=== PATIENT | female | born 1980 | race Caucasian/White ===

== ENCOUNTER 2017-05-06 19:53 | Emergency (ER) | payer OTHER ==
--- NOTE | 2017-05-06 20:58 | ED Physician Documentation ---
PD HPI LOWER EXT INJURY - Stated complaint Stated Complaint: ANKLE INJURY - Chief complaint Chief Complaint: Ext Problem - History obtained from History obtained from: Patient - History of Present Illness PD HPI LOW EXT INJURY LOCATION: Right, Ankle Type of injury: Twist Timing - onset: Today Timing - details: Abrupt onset, Still present Worsened by: Moving, Palpating Associated symptoms: Swelling. No: Weakness, Numbness, Tingling Similar symptoms before: Has not had sx before Recently seen: Not recently seen Review of Systems Constitutional: denies: Fever, Chills Nose: denies: Rhinorrhea / runny nose, Congestion Throat: denies: Sore throat Respiratory: denies: Cough GI: denies: Vomiting, Diarrhea Neurologic: denies: Focal weakness, Numbness PD PAST MEDICAL HISTORY - Past Medical History Musculoskeletal: None - Present Medications Home Medications: Ambulatory Orders Medication Instructions Recorded Confirmed Cyanocobalamin (Vitamin B-12) 1,000 mcg PO DAILY 05/06/17 05/06/17 [Vitamin B-12] HYDROcod/ACETAM 5/325 [[place] 5/325] 1 tab PO Q6H PRN #15 tablet 05/06/17 Pnv95/Ferrous Fumarate/FA 1 each PO DAILY 05/06/17 05/06/17 [ Formula Tablet] - Allergies Allergies/Adverse Reactions: Allergies Allergy/AdvReac Type Severity Reaction Status Date / Time acetaminophen [From Midrin] Allergy Unknown Verified 05/06/17 20:01 dichloralphenazone Allergy Unknown Verified 05/06/17 20:01 [From Midrin] isometheptene [From Midrin] Allergy Unknown Verified 05/06/17 20:01 PD ED PE NORMAL - Vitals Vital signs reviewed: Yes - General General: Alert and oriented X 3, No acute distress, Well developed/nourished - HEENT HEENT: Atraumatic - Neck Neck: No bony TTP - Derm Derm: Normal color, Warm and dry - Extremities Extremities: No tenderness to palpate, Other (right ankle with tenderness laterally with swelling. mild tender medially. No obvious deformity. ). No: Normal ROM s pain - Neuro Neuro: No motor deficit, No sensory deficit Results - Vitals Vitals: Oxygen O2 Source Room air - Rads (name of study) right ankle Radiology: Prelim report reviewed (distal fibular fracture and also apparent posterior tibial. ) PD MEDICAL DECISION MAKING - ED course Complexity details: reviewed results, considered differential, d/w patient Departure - Departure Disposition: 01 Home, Self Care Clinical Impression: Bimalleolar ankle fracture Qualifiers: Encounter type: initial encounter Fracture type: closed Laterality: right Qualified Code(s): S82.841A - Displaced bimalleolar fracture of right lower leg , initial encounter for closed fracture Condition: Stable Record reviewed to determine appropriate education?: Yes Instructions: ED Fx Ankle Lateral Malleolus, ED Boot Aircast Walker Follow-Up: SHELLY Harrison [Provider Group] Prescriptions: HYDROcod/ACETAM 5/325 [[place] 5/325] 1 tab PO Q6H PRN #15 tablet PRN Reason: Pain Comments: Keep the cast boot on as if it is a cast. Okay to remove it briefly for skin washing and cleansing. Nonweightbearing initially and use of crutches. Follow- up with your primary care in about 1-1-1/2 weeks, call Sunday for an appointment. Ice and elevated often. Ibuprofen or naproxen 2-3 times a day for the next 1-2 weeks. Add Tylenol or hydrocodone if needed for pain. On follow-up at likely 1-1/2-2 weeks, they may allow you to start doing partial weightbearing but it depends on how the x-ray is doing. This will take about 6 weeks for full healing. Forms: Activity restrictions Discharge Date/Time: 05/06/17 21:53
[2017-05-06] MEDS ORDERED: HYDROcod/ACETAM 5/325 MG TABLET PO STA (21:10)
[2017-05-06] MEDS ORDERED: HYDROcod/ACET 5/325 Prepack 6 PO STA (21:10)
--- NOTE | 2017-05-06 21:39 | XRAY Preliminary Report ---
Exam: XR ANKLE 3 VIEW RT IMPRESSION: Bimalleolar ankle fracture, including Velasquez type B oblique distal fibula fracture and mil dly impacted vertical posterior malleolus fracture. [facility] SITE ID: [id number]
--- NOTE | 2017-05-06 21:41 | XRAY Report ---
EXAM: RIGHT ANKLE RADIOGRAPHY EXAM DATE: 05/06/2017 08:35 PM. CLINICAL HISTORY: Pain to right ankle secondary to injury. COMPARISON: None. TECHNIQUE: 3 views. FINDINGS: Bones: Oblique distal fibula fracture, extending to the level of the tibial plafond, with mild impact ion of the distal fracture fragment. Mildly impacted vertical posterior malleolus fracture. Joints: Normal alignment. The ankle mortise is symmetric. No tibiotalar joint effusion. Soft Tissues: Anterolateral soft tissue swelling. IMPRESSION: Bimalleolar ankle fracture, including Velasquez type B oblique distal fibula fracture and mil dly impacted vertical posterior malleolus fracture. [facility] Referring Provider Line: [phone] SITE ID: [id number]
[2017-05-06 21:54] VITALS: BP 118/79
== END 2017-05-06 21:53 | disposition home or self-care (01) ==
LOC: ED 19:53
DX: S82.841A Displaced bimalleolar fracture of right lower leg, initial encounter for closed fracture (principal); W00.0XXA Fall on same level due to ice and snow, initial encounter; X50.9XXA Other and unspecified overexertion or strenuous movements or postures, initial encounter
CPT/HCPCS: 73610; 99283; A9270

== ENCOUNTER 2017-11-27 14:58 | Outpatient (CLI) | payer OTHER ==
[2017-11-27] MEDS ORDERED: GADOBUTROL 10 MMOL/10 ML VIAL IVP ONE (15:39)
[2017-11-27] MEDS ORDERED: GADOBUTROL 10 MMOL/10 ML VIAL ONE (15:48)
--- NOTE | 2017-11-28 13:56 | MRI Report ---
Procedure Date: 11/27/2017 Accession Number: [id number] / [id number] Procedure: MRI - Ankle RT W/WO CPT Code: FULL RESULT: EXAM: RIGHT ANKLE/HINDFOOT MRI WITHOUT AND WITH CONTRAST EXAM DATE: 11/27/2017 04:27 PM. CLINICAL HISTORY: Pain in right ankle and joints of right foot. COMPARISON: ANKLE 3 VIEW RT 05/06/2017. TECHNIQUE: Multiplanar, multisequence T1-weighted and fluid-sensitive sequences of the ankle before and after administration of intravenous contrast. IV contrast: 10 cc gadavist. Other: None. FINDINGS: Bones and articular surfaces: Artifact related to internal fixation of the distal fibula with sideplate and screws. Old healed oblique intra-articular fracture at the posterior aspect of the distal tibia. Mild cartilage thinning and fissuring at the posterior aspect of the tibiotalar joint. No significant joint effusion. Musculotendinous structures: The Achilles tendon and plantar fascia appear intact. Visualized anterior, posterior and posterior lateral ankle tendons appear intact. No significant muscle atrophy or fatty replacement. Ligaments: The anterior talofibular ligament is ill-defined and thinned in appearance. Posterior talofibular and calcaneofibular ligaments appear intact. Visualized portions of the deltoid ligament appear intact. Normal signal within the tarsal sinus. IMPRESSION: 1. Artifact related to internal fixation of the distal fibula. 2. Old healed or healing intra-articular fracture at the posterior aspect of the distal tibia. 3. Mild cartilage thinning and fissuring in the tibiotalar joint posteriorly. [facility] MUSCULOSKELETAL RADIOLOGY SECTION
== END 2017-11-27 14:59 | disposition home or self-care (01) ==
LOC: DI 14:58
PROVIDERS: ATTEND Orthopaedic Surgery
DX: M25.571 Pain in right ankle and joints of right foot (principal)
CPT/HCPCS: 73723; A9585

== ENCOUNTER 2019-03-07 06:05 | Day surgery (SDC) | payer OTHER ==
[2019-03-07] MEDS ORDERED: CEFAZOLIN SODIUM IN 0.9 % NACL 2 GM/100 ML BAG IV ONE (06:27)
[2019-03-07 06:33] LABS: HCG UR QUAL NEGATIVE
[2019-03-07] MEDS ORDERED: LACTATED RINGERS 1,000 ML IV ONE ×2 (06:41→09:04)
--- NOTE | 2019-03-07 07:03 | ANESTHESIA ---
Pre-Anesthesia VS, & Labs - Diagnosis Recurrent right breast abscess - Procedure excision of ectatic duct of right breast Vital Signs: Temp Pulse Resp BP Pulse Ox 37.4 C 60 15 114/52 L 98 03/07/19 06:30 03/07/19 06:30 03/07/19 06:30 03/07/19 06:30 03/07/19 06:30 Height 5 ft 5 in Weight (kg) 91 kg Body Mass Index 35.2 - NPO >8 hours - Is Patient ?: No Home Medications and Allergies Home Medications: Ambulatory Orders Doxepin [SINEquan] 25 mg PO DAILY 03/06/19 Pnv95/Ferrous Fumarate/FA [ Formula Tablet] 1 each PO DAILY 05/06/17 Doxepin [SINEquan] 25 mg PO DAILY 03/06/19 Allergies/Adverse Reactions: Allergies Allergy/AdvReac Type Severity Reaction Status Date / Time dichloralphenazone Allergy dilated Verified 03/04/19 11:57 [From Midrin] pupils isometheptene [From Midrin] Allergy Unknown Verified 05/06/17 20:01 Anes History & Medical History - Anesthetic History Anesthesia Complications: reports: No previous complications - Medical History Cardiovascular: reports: None Pulmonary: reports: None Gastrointestinal: reports: None Urinary: reports: Kidney stones (hx of kidney stones) Neuro: reports: None Musculoskeletal: reports: None Endocrine/Autoimmune: reports: HyPOthyroidism (not currently taking) Blood Disorders: reports: None Skin: reports: None Smoking Status: Former smoker (quit 1 y ear ago) Psychosocial: reports: No issues indicated - Surgical History General: Colonoscopy, Other (breast biopsy) Gynecologic:  Orthopedic: Other (right ankle ORIF) Dermatologic: Skin cancer surgery (basal cell) Exam General: Alert, Oriented x3, Cooperative, No acute distress Dental: WNL Mouth Openin Fingerbreadth Neck Mobility: Normal Mallampati classification: II Thyromental Distance: greater than 6 cm Respiratory: Lungs clear, Normal breath sounds, No respiratory distress, No accessory muscle use Cardiovascular: Regular rate, Normal S1, Normal S2, No murmurs Mental/Cognitive Status: Alert/Oriented X3, Normal for patient Plan Anesthesia Type: General Consent for Procedure(s) Verified and Reviewed: Yes Code Status: Attempt Resuscitation ASA classification: 2-Mild systemic disease Is this case an emergency?: No
[2019-03-07] MEDS: BUPIVACAINE 0.5% PF 30 ML VIAL ONE ×2 (07:36→08:55)
[2019-03-07] MEDS ORDERED: HYDROmorphone 1 MG/ML CARPUJECT IVP ONE (07:56)
[2019-03-07] MEDS ORDERED: ONDANSETRON 4 MG/2 ML VIAL IVP ONE (07:56)
[2019-03-07] MEDS ORDERED: MIDAZOLAM 2 MG/2 ML VIAL IVP ONE (07:56)
[2019-03-07] MEDS ORDERED: KETOROLAC 30 MG/ML VIAL IVP ONE (07:56)
[2019-03-07] MEDS ORDERED: PROPOFOL 200 MG/20 ML VIAL IVP ONE (07:56)
[2019-03-07] MEDS ORDERED: DEXAMETHASONE 4 MG/ML VIAL IVP ONE (07:56)
[2019-03-07] MEDS ORDERED: fentaNYL 100 MCG/2 ML VIAL IVP ONE (07:56)
[2019-03-07] MEDS ORDERED: HYDROcod/ACETAM 5/325 MG TABLET PO PRN (09:02)
[2019-03-07] MEDS ORDERED: ONDANSETRON 4 MG/2 ML VIAL IVP PRN (09:02)
[2019-03-07] MEDS ORDERED: HYDROmorphone 0.5 MG/0.5 ML SYRINGE IVP PRN (09:02)
--- NOTE | 2019-03-07 09:08 | OPERATIVE REPORT ---
Operative Report - General Procedure Date: 03/07/19 Planned Procedure: Right breast excisional biopsy of duct and abscess cavity Pre-Op Diagnosis: Recurrent right breast abscessectatic or obstructed duct Procedure Performed: Right breast excisional biopsy including duct and abscess cavity Post Op Diagnosis: Same - Procedure Note Primary Surgeon: Morgan Asher MD Anesthesia Provider: Skip Hoffmann CRNA Anesthesia Technique: General LMA, Local (30 mL of half percent Marcaine) IV Fluids (mL): 1,000 Estimated Blood Loss (mL): 20 Drain/Tube Type: Other (None.) Complications: None. - Other Other Information/Narrative: OPERATIVE DESCRIPTION/REPORT: After verbal and written informed consent was obtained detailing the risks of infection, bleeding requiring transfusion with its risks, nerve injury, and , and after I met with the patient confirming the surgery and the site of the surgery and after initialing the site of the surgery with a surgical marker, the patient was brought to the operative suite and placed supine on the operating table. Great care was taken to avoid pressure points to prevent pressure necrosis or nerve injury. Monitoring devices were applied along with TEDs and pneumatic compressive stockings (to prevent DVT). The patient received preoperative antibiotics for surgical prophylaxis. Skip Hoffmann CRNA sedated and anesthetized the patient for the entire procedure. The patient was prepped and draped in the usual sterile manner. With the patient draped my initials were clearly visible. A "time in" then confirmed that the patient was identified with 3 identifiers (name, date and medical record number), the history and physical was in the chart, the signed consent confirming the procedure was in the chart, the patient was in the correct position, the aforementioned prophylactic measures were in place or given, we had the correct personnel and equipment to complete the procedure and that anesthesia, surgery and nursing were given an opportunity to express any concerns. With the agreement of everyone in the room, we proceeded with the operation. After adequate local anesthesia was administered using 1/2% marcaine, the skin at the inferolateral right areolar skin border was incised in a curvilinear fashion. Dissection down to the abnormally dilated duct was performed using a combination of Metzenbaum scissors and Bovie electrocautery. Two "stones" were removed from the duct itself. The abnormal tissue was shaved off the back of the skin of the areola. The dissection then proceeded posteriorly and into the breast proper for approximately 4 cm. Every attempt was made to get approximately 1 cm of normal tissue around the lesion. I opted not to carole the specimen as the likelihood of malignancy is ridiculously low. Meticulous hemostasis was obtained using Bovie electrocautery. The subcutaneous tissues were approximated using interrupted 2-0 Vicryl. The skin incision was approximated with 4-0 Monocryl in a subcuticular fashion. The skin was cleaned of its prep and Dermabond was applied. A dressing was then applied. At this point a time out was performed that confirmed that all the counts were correct, the procedure that was performed, the blood loss, the IV fluids administered, and the patients condition. Having tolerated the procedure well, the patient was subsequently taken to recovery room in good and stable condition. Lotame disclaimer: This document was created in part using voice recognition technology. Because of the inherent limitations of the system ([employer] user manual states that the licensee understands that speech recognition is a statistical process and that recognition errors are inherent in the process), occasional same sounding word substitutions and grammatical errors do occur and persist despite proofreading. Please read this document for context.
[2019-03-07] MEDS ORDERED: ACETAMINOPHEN 1,000 MG/100 ML 100 ML IV ONE (09:40)
[2019-03-07] MEDS: fentaNYL 100 MCG/2 ML VIAL ONE ×2 (09:46→09:51)
[2019-03-07] MEDS ORDERED: ONDANSETRON 4 MG/2 ML VIAL ONE (10:50)
[2019-03-07 10:59] VITALS: BP 106/67
== END 2019-03-07 06:06 | disposition home or self-care (01) ==
LOC: SDS 06:05
PROVIDERS: ATTEND Surgery
PROC: 0HBT0ZZ Excision of Right Breast, Open Approach (ICD-10-PCS; principal; 2019-03-07 07:30)
DX: D24.1 Benign neoplasm of right breast (principal); Z87.891 Personal history of nicotine dependence; Z79.899 Other long term (current) drug therapy
CPT/HCPCS: 19120; 81025; J0131; J0690; J1170; J7120

== ENCOUNTER 2019-05-09 17:39 | Emergency (ER) | payer OTHER ==
[2019-05-09] MEDS ORDERED: DEXAMETHASONE 10 MG/ML VIAL PO STA (19:21)
[2019-05-09] MEDS ORDERED: CHERRY SYRUP 10 ML UDC PO ONE (19:21)
--- NOTE | 2019-05-09 19:30 | ED Physician Documentation ---
History of Present Illness - Stated complaint Stated Complaint: SORE THROAT/L EAR PX - Chief complaint Chief Complaint: Heent - History obtained from History obtained from: Patient - History of Present Illness Timing: Yesterday Pain level max: 6 Pain level now: 5 - Additonal information Additional information: 38-year-old female states that she has been sick for the past week with runny nose, congestion and cough. 2 days ago started having significant throat pain. Noticed exudates on her tonsils. Her ear is also hurting. Worse with swallowing, nothing makes it better. No vomiting. No diarrhea. No abdominal pain. She is not , or breast-feeding Review of Systems Constitutional: reports: Fever Throat: reports: Sore throat GI: denies: Vomiting, Diarrhea Skin: denies: Rash Musculoskeletal: denies: Neck pain, Back pain Neurologic: denies: Headache PD PAST MEDICAL HISTORY - Past Medical History Past Medical History: Yes Cardiovascular: None Respiratory: None Neuro: None Endocrine/Autoimmune: HyPOthyroidism GI: None : Kidney stones HEENT: Chronic vision loss Psych: Claustrophobia Musculoskeletal: None Derm: None - Past Surgical History Past Surgical History: Yes General: Colonoscopy, Other Ortho: Other /[employer] LEADER:  HEENT: Other Derm: Skin cancer surgery - Present Medications Home Medications: Ambulatory Orders Medication Instructions Recorded Confirmed Pnv No.95/Ferrous Fum/Folic AC 1 each PO DAILY 05/06/17 03/04/19 [ Formula Tablet] Doxepin [SINEquan] 25 mg PO DAILY 03/06/19 03/06/19 Docusate Sodium 250Mg Capsule 250 mg PO DAILY #10 capsule 03/07/19 [Colace 250Mg Capsule] HYDROcod/ACETAM 5/325 [[place] 5/325] 1 each PO Q4H #10 tablet 03/07/19 Ibuprofen [Motrin] 800 mg PO Q8H PRN #30 tablet 05/09/19 Penicillin V Potassium 500 mg PO Q6HR #40 tablet 05/09/19 - Allergies Allergies/Adverse Reactions: Allergies Allergy/AdvReac Type Severity Reaction Status Date / Time dichloralphenazone Allergy dilated Verified 05/09/19 17:51 [From Midrin] pupils isometheptene [From Midrin] Allergy Unknown Verified 05/09/19 17:51 - Social History Does the pt smoke?: No Smoking Status: Never smoker Does the pt drink ETOH?: No Does the pt have substance abuse?: No - Immunizations Immunizations are current?: Yes - POLST Patient has POLST: No PD ED PE NORMAL - Vitals Vital signs reviewed: Yes - General General: Alert and oriented X 3, No acute distress, Well developed/nourished - HEENT HEENT: PERRL, Ears normal, Moist mucous membranes, Other (Posterior pharyngeal erythema with tonsillar exudates. Uvula midline. Normal phonation. No trismus.) - Neck Neck: Supple, no meningeal sign, Other (Shotty anterior lymphadenopathy) - Cardiac Cardiac: RRR, Strong equal pulses - Respiratory Respiratory: No respiratory distress, Clear bilaterally - Abdomen Abdomen: Soft, Non tender, Non distended - Derm Derm: Warm and dry, No rash - Neuro Neuro: Alert and oriented X 3 - Psych Psych: Normal mood, Normal affect Results - Vitals Vitals: Oxygen O2 Source Room air PD MEDICAL DECISION MAKING - ED course Complexity details: considered differential, d/w patient ED course: Patient appears to have strep pharyngitis clinically. Will place on antibiotics. She is well-appearing, nontoxic. Afebrile. No evidence of abscess. Patient counseled regarding signs and symptoms for which I believe and urgent re-evaluation would be necessary. Patient with good understanding of and agreement to plan and is comfortable going home at this time This document was made in part using voice recognition software. While efforts are made to proofread this document, sound alike and grammatical errors may occur. Departure - Departure Disposition: 01 Home, Self Care Clinical Impression: Strep pharyngitis Condition: Good Instructions: ED Strep Pharyngitis Conf Follow-Up: Your,doctor in 1 week [Other] Prescriptions: Penicillin V Potassium 500 mg PO Q6HR #40 tablet Ibuprofen [Motrin] 800 mg PO Q8H PRN #30 tablet PRN Reason: PAIN &/OR FEVER Comments: Take all antibiotics until gone. Return if you worsen. Follow-up with your doctor for further care. Discharge Date/Time: 05/09/19 19:30
[2019-05-09 19:42] VITALS: BP 135/87
== END 2019-05-09 19:30 | disposition home or self-care (01) ==
LOC: ED 17:39
DX: J02.0 Streptococcal pharyngitis (principal)
CPT/HCPCS: 99282; 99284; A9270

== ENCOUNTER 2020-06-16 07:00 | Outpatient (CLI) | payer OTHER ==
[2020-06-16 16:54] LABS: MUDS CUTOFF CONCENTRATIONS CUTOFF CONC BELOW:
[2020-06-16 17:12] LABS: BILIRUBIN,URINE NEGATIVE (NEGATIVE); GLUCOSE, URINE (UA) NEGATIVE (NEGATIVE); KETONES,URINE (UA) TRACE mg/dL (NEGATIVE); LEUKOCYTE ESTERASE, URINE NEGATIVE (NEGATIVE); NITRITE,URINE NEGATIVE (NEGATIVE); OCCULT BLOOD,URINE NEGATIVE (NEGATIVE); PROTEIN,URINE NEGATIVE (NEGATIVE); UROBILINOGEN,URINE 0.2 (NORMAL) E.U./dL (NORMAL)
[2020-06-16 17:15] LABS: CLARITY,URINE CLEAR (CLEAR)
[2020-06-16 17:22] LABS: AMPHETAMINE SCREEN,URINE NEGATIVE (NEGATIVE); BENZODIAZEPINES SCREEN, URINE NEGATIVE (NEGATIVE); COCAINE SCREEN URINE NEGATIVE (NEGATIVE); METHADONE SCREEN, URINE NEGATIVE (NEGATIVE); METHAMPHETAMINES SCREEN, URINE NEGATIVE (NEGATIVE); OPIATE SCREEN, URINE NEGATIVE (NEGATIVE); OXYCODONE SCREEN, URINE NEGATIVE (NEGATIVE); PROPOXYPHENE SCREEN, URINE NEGATIVE (NEGATIVE); TRICYCLIC ANTIDEPRESSANT,URINE NEGATIVE (NEGATIVE)
== END 2020-06-16 23:59 | disposition home or self-care (01) ==
LOC: LAB.R 07:00
PROVIDERS: ATTEND Nurse Practitioner Obstetrics & Gynecology
DX: Z32.01 Encounter for pregnancy test, result positive (principal)
CPT/HCPCS: 80306; 81001; 81003; 87086

== ENCOUNTER 2020-06-24 12:57 | Outpatient (CLI) | payer OTHER ==
--- NOTE | 2020-06-24 15:34 | Ultrasound Report ---
PROCEDURE: OB First Trimester INDICATIONS: + preg test OUTSIDE/PRIOR DATING DATA: Last menstrual period (LMP): 04/05/2020. LMP-based estimated date of delivery (EKTA): 01/10/2021. First dating scan (date and location): 06/24/2020. Estimated date of delivery (EKTA) from first dating scan: 01/05/2021. TECHNIQUE: Real-time scanning was performed of the fetus and maternal pelvic organs, with image documentation. COMPARISON: FINDINGS: Embryo: There is a gestational sac at the uterine fundus with mean sac diameter of 5.3 cm, correspon ding to gestational age of 11 weeks 1 day. Within the gestational sac there is a fetus with a crown-r ump length of 5.5 cm, corresponding to gestational age of 12 weeks 1 day. heart rate detected a t 163 bpm. The cervix appears closed and normal. Both ovaries are unremarkable. IMPRESSION: Single live intrauterine gestation with average ultrasound age of 12 weeks 1 day. Reviewed by: Kraig Abraham MD on 06/24/2020 2:32 PM [facility] Approved by: Kraig Abraham MD on 06/24/2020 2:32 PM [facility] Station ID: [id number]
== END 2020-06-24 12:58 | disposition home or self-care (01) ==
LOC: DI 12:57
PROVIDERS: ATTEND Nurse Practitioner Obstetrics & Gynecology
DX: Z32.01 Encounter for pregnancy test, result positive (principal); O99.280 Endocrine, nutritional and metabolic diseases complicating pregnancy, unspecified trimester; E03.9 Hypothyroidism, unspecified; Z3A.12 12 weeks gestation of pregnancy
CPT/HCPCS: 36415; 81599; 84439; 84443; 85025; 86592; 86762; 86787; 86803; 86850; 86900; 86901; 87340; 87389

== ENCOUNTER 2020-06-24 13:42 | Outpatient (CLI) | payer OTHER ==
[2020-06-24 14:16] LABS: BASOPHILS % (AUTO) 0.3 %; EOSINOPHILS # (AUTO) 0.1 10^3/uL (0.0-0.7); EOSINOPHILS % (AUTO) 1.1 %; HGB - HEMOGLOBIN 13.9 g/dL (12.0-16.0); LYMPHOCYTES # (AUTO) 2.8 10^3/uL (1.5-3.5); LYMPHOCYTES % (AUTO) 21.3 %; MEAN CORPUSCULAR HEMOGLOBIN 30.4 pg (27.0-31.0); MEAN CORPUSCULAR HGB CONC 33.6 g/dL (32.0-36.0); MEAN CORPUSCULAR VOLUME 90.6 fL (81.0-99.0); MEAN PLATELET VOLUME 11.1 fL (7.9-10.8); MONOCYTES # (AUTO) 0.7 10^3/uL (0.0-1.0); MONOCYTES % (AUTO) 5.4 %; NEUTROPHILS # (AUTO) 9.4 10^3/uL (1.5-6.6); NEUTROPHILS % (AUTO) 71.6 %; PLT - PLATELET COUNT 245 10^3/uL (130-450); RED BLOOD COUNT 4.57 10^6/uL (4.20-5.40); RED CELL DISTRIBUTION WIDTH 12.8 % (12.0-15.0); WHITE BLOOD COUNT 13.1 x10^3/uL (4.8-10.8)
[2020-06-24 14:44] LABS: THYROID STIMULATING HORMONE 1.95 uIU/mL (0.34-5.60)
[2020-06-24 14:47] LABS: FREE T4 (FREE THYROXINE) 0.79 ng/dL (0.58-1.64)
[2020-06-25 13:42] LABS: HEPATITIS B SURFACE ANTIGEN NON-REACTIVE (NON-REACTIVE); HEPATITIS C ANTIBODY NON-REACTIVE (NON-REACTIVE)
[2020-06-25 14:57] LABS: HIV AG/AB 4TH GEN NON-REACTIVE (NON-REACTIVE)
== END 2020-06-24 13:43 | disposition home or self-care (01) ==
LOC: LAB 13:42
PROVIDERS: ATTEND Nurse Practitioner Obstetrics & Gynecology
DX: Z32.01 Encounter for pregnancy test, result positive (principal); O99.280 Endocrine, nutritional and metabolic diseases complicating pregnancy, unspecified trimester; E03.9 Hypothyroidism, unspecified
CPT/HCPCS: 36415; 81599; 84439; 84443; 85025; 86762; 86787; 86803; 86850; 86900; 86901; 87340; 87389

== ENCOUNTER 2020-06-29 08:00 | Outpatient (CLI) | payer OTHER ==
[2020-06-29 22:43] LABS: TRICHOMONAS VAGINALIS DNA NEGATIVE (NEGATIVE)
== END 2020-06-29 23:59 | disposition home or self-care (01) ==
LOC: LAB.R 08:00
PROVIDERS: ATTEND Nurse Practitioner Obstetrics & Gynecology
DX: Z11.3 Encounter for screening for infections with a predominantly sexual mode of transmission (principal)
CPT/HCPCS: 87491; 87591; 87661

== ENCOUNTER 2020-07-30 11:19 | Outpatient (CLI) | payer OTHER | END 2020-07-30 11:20 | disposition home or self-care (01) | LOC: LAB 11:19 | PROVIDERS: ATTEND Nurse Practitioner Obstetrics & Gynecology | DX: O09.511 Supervision of elderly primigravida, first trimester (principal) | CPT/HCPCS: 36415 ==

== ENCOUNTER 2020-10-21 11:54 | Outpatient (CLI) | payer OTHER ==
[2020-10-21 13:03] LABS: HCT - HEMATOCRIT 31.5 % (37.0-47.0); HGB - HEMOGLOBIN 10.4 g/dL (12.0-16.0); MEAN CORPUSCULAR HEMOGLOBIN 31.3 pg (27.0-31.0); MEAN CORPUSCULAR VOLUME 94.9 fL (81.0-99.0); MEAN PLATELET VOLUME 10.7 fL (7.9-10.8); RED BLOOD COUNT 3.32 10^6/uL (4.20-5.40); RED CELL DISTRIBUTION WIDTH 13.5 % (12.0-15.0); WHITE BLOOD COUNT 9.9 x10^3/uL (4.8-10.8)
[2020-10-21 13:40] LABS: THYROID STIMULATING HORMONE 2.27 uIU/mL (0.34-5.60)
[2020-10-21 13:42] LABS: FREE T4 (FREE THYROXINE) 0.6 ng/dL (0.58-1.64)
== END 2020-10-21 11:55 | disposition home or self-care (01) ==
LOC: LAB 11:54
PROVIDERS: ATTEND Obstetrics & Gynecology
DX: O09.899 Supervision of other high risk pregnancies, unspecified trimester (principal); E03.9 Hypothyroidism, unspecified
CPT/HCPCS: 36415; 82950; 84439; 84443; 85027

== ENCOUNTER 2020-10-22 08:04 | Outpatient (CLI) | payer OTHER ==
[2020-10-22 08:33] LABS: GTT GLUCOSE,FASTING 97 mg/dL (70-100)
== END 2020-10-22 08:05 | disposition home or self-care (01) ==
LOC: LAB 08:04
PROVIDERS: ATTEND Obstetrics & Gynecology
DX: O09.899 Supervision of other high risk pregnancies, unspecified trimester (principal)
CPT/HCPCS: 36415; 82951; 82952

== ENCOUNTER 2020-11-16 18:56 | Outpatient (CLI) | payer OTHER ==
--- NOTE | 2020-11-17 12:08 | Ultrasound Report ---
PROCEDURE: OB F/U or Repeat INDICATIONS: GESTATIONAL DIABETES, SUPERVISION OF HIGH RISK PRE OUTSIDE/PRIOR DATING DATA: Last menstrual period (LMP): 04/05/2020. LMP-based estimated date of delivery (EKTA): 01/10/2021. First dating scan (date and location): 06/24/2020, [facility]. Estimated date of delivery (EKTA) from first dating scan: 01/05/2021. The below data below was generated using the LMP EKTA of 01/10/2021 TECHNIQUE: Real-time scanning was performed of the fetus, with image documentation and biometric measurements. COMPARISON: None. FINDINGS: General: A single living intrauterine gestation is present. Presentation: Vertex Placenta: Placental position is anterior, without previa. Amniotic fluid index: 15.8 cm. Largest pocket 3.3 cm heart rate: 135 beats per minute. Maternal cervical canal: Not identified biometrics: Biparietal diameter: 7.8 cm: 31 weeks 1 day Head circumference: 29.6 cm: 32 weeks 5 days Abdominal circumference: 28.4 cm: 32 weeks 2 days Femur length: 6.3 cm: 32 weeks 5 days Estimated gestational age from initial scan: 32 weeks 1 day. Composite gestational age from present scan: 32 weeks 2 days Estimated weight and percentile: 1978 g. 49.3% Measurement variability in biometric dating: +/- 10 days from 12-20 weeks gestation, +/- 2 weeks from 20-30 weeks gestation, +/- 3 weeks at 30 weeks gestation or more. Other: Limited anatomy demonstrates a normal-appearing chest/diaphragm, stomach/abdomen, bilateral re nal regions, and urinary bladder/pelvis.. IMPRESSION: 1. Intrauterine with an estimated date of delivery of 01/11/2020 by LMP. 2. Estimated weight 1978 g, 49.3% 3. Normal CORTEZ. Reviewed by: Gerry Lam on 11/17/2020 12:06 PM PDT Approved by: Gerry Lam on 11/17/2020 12:06 PM PDT Station ID: [id number]
== END 2020-11-16 18:57 | disposition home or self-care (01) ==
LOC: DI 18:56
PROVIDERS: ATTEND Obstetrics & Gynecology
DX: O24.419 Gestational diabetes mellitus in pregnancy, unspecified control (principal); O09.899 Supervision of other high risk pregnancies, unspecified trimester; Z3A.32 32 weeks gestation of pregnancy

== ENCOUNTER 2020-11-23 13:41 | Outpatient (CLI) | payer OTHER | END 2020-11-23 13:42 | disposition home or self-care (01) | LOC: NS 13:41 | PROVIDERS: ATTEND Obstetrics & Gynecology | DX: Z53.9 Procedure and treatment not carried out, unspecified reason (principal) ==

== ENCOUNTER 2020-11-29 16:36 | Outpatient (CLI) | payer OTHER ==
--- NOTE | 2020-11-30 10:37 | Ultrasound Report ---
PROCEDURE: OB Limited INDICATIONS: GESTATIONAL DIABETES OUTSIDE/PRIOR DATING DATA: Last menstrual period (LMP): 04/05/2020. LMP-based estimated date of delivery (EKTA): 01/11/2020. First dating scan (date and location): 06/24/2019. Estimated date of delivery (EKTA) from first dating scan: 01/06/2020. The below data below was generated using the clinical EKTA of 01/11/2020 TECHNIQUE: Real-time scanning was performed of the fetus, with image documentation. COMPARISON: OB ultrasound 06/24/2020, 11/16/2020 FINDINGS: A single living intrauterine gestation is present. Presentation: First Placenta: Placental position is anterior, without previa. Amniotic fluid index: 14.4 cm, within normal limits for gestational age. Largest pocket 5.1 cm heart rate: 145 beats per minutes. Maternal cervical canal: 3 cm long; normal length is 2.5 cm or more. Estimated gestational age from initial scan: 34 weeks 0 days. IMPRESSION: 1. Single live intrauterine . 2. CORTEZ 14.4 cm with largest pocket measuring 5.1 cm. This corresponds to 15.8 cm and 3.3 cm respectiv jaqueline on 11/16/2020. Reviewed by: Mirna Yancey MD on 11/30/2020 10:36 AM PDT Approved by: Mirna Yancey MD on 11/30/2020 10:36 AM PDT Station ID: [id number]
== END 2020-11-29 16:37 | disposition home or self-care (01) ==
LOC: DI 16:36
PROVIDERS: ATTEND Obstetrics & Gynecology
DX: O24.419 Gestational diabetes mellitus in pregnancy, unspecified control (principal); Z3A.34 34 weeks gestation of pregnancy

== ENCOUNTER 2020-12-01 08:00 | Outpatient (CLI) | payer OTHER ==
[2020-12-01 16:28] LABS: BILIRUBIN,URINE NEGATIVE (NEGATIVE); GLUCOSE, URINE (UA) NEGATIVE (NEGATIVE); KETONES,URINE (UA) NEGATIVE (NEGATIVE); LEUKOCYTE ESTERASE, URINE NEGATIVE (NEGATIVE); NITRITE,URINE NEGATIVE (NEGATIVE); OCCULT BLOOD,URINE NEGATIVE (NEGATIVE); PROTEIN,URINE NEGATIVE (NEGATIVE); UROBILINOGEN,URINE 0.2 (NORMAL) E.U./dL (NORMAL)
[2020-12-01 16:30] LABS: CLARITY,URINE CLEAR (CLEAR)
[2020-12-01 16:40] LABS: BACTERIA,URINE Few /HPF (None Seen); RBC,URINE 0-5 /HPF (0-5); SQUAMOUS EPITHELIAL CELL,UR FEW Squamous (<= Few); WBC,URINE 0-3 /HPF (0-5)
[2020-12-01 20:12] LABS: BACTERIAL VAGINOSIS DNA NEGATIVE (NEGATIVE); CANDIDA KRUSEI DNA NEGATIVE (NEGATIVE)
[2020-12-01 20:13] LABS: CANDIDA GLABRATA DNA NEGATIVE (NEGATIVE); CANDIDA GROUP DNA NEGATIVE (NEGATIVE); TRICHOMONAS VAGINALIS DNA NEGATIVE (NEGATIVE)
== END 2020-12-01 23:59 | disposition home or self-care (01) ==
LOC: LAB.WC 08:00
PROVIDERS: ATTEND Obstetrics & Gynecology
DX: R82.90 Unspecified abnormal findings in urine (principal); N76.0 Acute vaginitis
CPT/HCPCS: 81001; 87086; 87661; 87801

== ENCOUNTER 2020-12-02 16:30 | Outpatient (CLI) | payer OTHER ==
[2020-12-02 16:46] VITALS: BP 105/44
--- NOTE | 2020-12-02 18:37 | PROCEDURE REPORT ---
- HPI Current EDU 01/10/21 Gestation 34 Weeks and 3 Days 1 Para 0 Vital Signs Temperature 98.8 F 12/02/20 16:44 Heart Rate 76 12/02/20 16:44 Respiratory Rate 17 12/02/20 16:44 Blood Pressure 105/44 L 12/02/20 16:44 O2 Saturation 99 12/02/20 16:44 Temperature 98.8 F 12/02/20 16:44 Heart Rate 76 12/02/20 16:44 Respiratory Rate 17 12/02/20 16:44 Blood Pressure 105/44 L 12/02/20 16:44 O2 Saturation 99 12/02/20 16:44 - NST Procedure NST Procedure Start Date 12/02/20 Start Time 16:40 Vibroacoustic Stimulation Used No Patient States Movement Yes 40 yo GDM A2 on Metformin here for NST. Initially, had an indeterminate baseline. It would go from 140- 180's, definitely moderate variability criteria was met, but unsure if having accelerations or decelerations. Patient's glucose checked and it was 87. Biophysical profile ordered to assess the fetus. NST became more appropriate in appearance with Baseline of 125, moderate variability and Accelerations present. No decelerations. No contractions. Biophysical profile was 6/8, NST was Reactive and Category I. Repeat NST and Biophysical Profile tomorrow. - Results and Plan Findings/Impression: IUP 34 3/7 GDM A2 Continue current medication and monitoring protocols. Follow-up in office as scheduled.
--- NOTE | 2020-12-02 21:50 | Ultrasound Report ---
PROCEDURE: OB Biophysical Profile INDICATIONS: GDM OUTSIDE/PRIOR DATING DATA: Last menstrual period (LMP): 04/05/2020. LMP-based estimated date of delivery (EKTA): 01/10/2021. First dating scan (date and location): To 1121. Estimated date of delivery (EKTA) from first dating scan: 01/05/2021. The below data below was generated using the clinical EKTA of 01/10/2021 TECHNIQUE: Real-time scanning was performed of the fetus, with image documentation and biometric joleen surements. Biophysical profile was also obtained. COMPARISON: OB ultrasound 11/29/2020, 11/16/2020, 06/24/2020 FINDINGS: General: A single living intrauterine gestation is present. Presentation: Vertex Placenta: Placental position is anterior, without previa. Amniotic fluid index: 18.1 cm. Largest pocket 5.6 cm heart rate: 136 beats per minute. Maternal cervical canal: Not evaluated biometrics: Estimated gestational age from initial scan: 34 weeks 3 days Biophysical profile: Tone: 2 points. Movement: 2 points. Respiration: 0 points. Largest pocket of fluid: 2 points. Umbilical artery Doppler: 2.2, 2.7, 3.1 IMPRESSION: Single live intrauterine . BPP 8 out of 8 Reviewed by: Mirna Yancey MD on 12/02/2020 9:48 PM PDT Approved by: Mirna Yancey MD on 12/02/2020 9:48 PM PDT Station ID: [id number]
== END 2020-12-02 19:11 | disposition home or self-care (01) ==
LOC: WFO 16:30 → FBP 16:35 → WFO 19:11
PROVIDERS: ATTEND Obstetrics & Gynecology
DX: O24.415 Gestational diabetes mellitus in pregnancy, controlled by oral hypoglycemic drugs (principal); Z3A.34 34 weeks gestation of pregnancy
CPT/HCPCS: 59025

== ENCOUNTER 2020-12-03 10:57 | Outpatient (CLI) | payer OTHER ==
[2020-12-03 11:22] VITALS: BP 135/72
--- NOTE | 2020-12-03 14:05 | PROCEDURE REPORT ---
- HPI Diagnosis/Indication for NST: Other (BPP on 12/02/20 6/8 due to absent breathing motion.) Current EDU 01/10/21 Gestation 34 Weeks and 4 Days 1 Para 0 Vital Signs Temperature 98.4 F 12/03/20 11:20 Heart Rate 89 12/03/20 11:20 Respiratory Rate 18 12/03/20 11:20 Blood Pressure 135/72 H 12/03/20 11:20 O2 Saturation 100 12/03/20 11:20 Temperature 98.4 F 12/03/20 11:20 Heart Rate 89 12/03/20 11:20 Respiratory Rate 18 12/03/20 11:20 Blood Pressure 135/72 H 12/03/20 11:20 O2 Saturation 100 12/03/20 11:20 - NST Procedure NST Procedure Start Date 12/03/20 Start Time 11:06 Stop Time 18:18 Vibroacoustic Stimulation Used No Patient States Movement Yes 40 yo at 34 4/7 with GDM A2 presents for NST and BPP due to DPP yesterday of 10/19 with absent breathing. NST: Baseline 135 with moderate variability. Accelerations of 15X15. No decelerations. No contractions. NST is Reactive and Category I BPP today is 12/19 - Results and Plan Findings/Impression: Reactive NST and BPP 12/19 for total of 02/20. Return Sunday as scheduled for her monitoring. Call for any problems.
--- NOTE | 2020-12-03 14:05 | Ultrasound Report ---
PROCEDURE: OB Biophysical Profile INDICATIONS: non-reactive NST 12/02/20 OUTSIDE/PRIOR DATING DATA: Last menstrual period (LMP): 04/05/2020. LMP-based estimated date of delivery (EKTA): 01/10/2021. First dating scan (date and location): To 1121. Estimated date of delivery (EKTA) from first dating scan: 01/05/2021. The below data below was generated using the clinical EKTA of 01/10/2021 TECHNIQUE: Real-time scanning was performed of the fetus, with image documentation and biometric joleen surements. Biophysical profile was also obtained. COMPARISON: OB ultrasound 12/01/2020, 11/29/2020 FINDINGS: General: A single living intrauterine gestation is present. Presentation: Vertex Placenta: Placental position is and, without previa. Amniotic fluid index: 17.1 cm cm, largest pocket 6.1 cm heart rate: 131 beats per minute. Maternal cervical canal: Not well seen biometrics: Estimated gestational age from initial scan: 34 weeks 4 days Biophysical profile: Tone: 2 points. Movement: 2 points. Respiration: 2 points. Largest pocket of fluid: 2 points. Umbilical artery Doppler: 2.5, 2.1, 2.9 IMPRESSION: Single intrauterine . BPP 8 out of 8 Reviewed by: Mirna Yancey MD on 12/03/2020 2:04 PM PDT Approved by: Mirna Yancey MD on 12/03/2020 2:04 PM PDT Station ID: [id number]
== END 2020-12-03 12:45 | disposition home or self-care (01) ==
LOC: WFO 10:57 → FBP 10:59 → WFO 12:45
PROVIDERS: ATTEND Obstetrics & Gynecology
DX: O24.419 Gestational diabetes mellitus in pregnancy, unspecified control (principal); Z3A.34 34 weeks gestation of pregnancy
CPT/HCPCS: 59025

== ENCOUNTER 2020-12-06 16:25 | Outpatient (CLI) | payer OTHER ==
--- NOTE | 2020-12-07 09:06 | Ultrasound Report ---
PROCEDURE: OB Limited INDICATIONS: GESTATIONAL DIABETES OUTSIDE/PRIOR DATING DATA: Last menstrual period (LMP): 04/05/2020. LMP-based estimated date of delivery (EKTA): 01/10/2021. First dating scan (date and location): 06/24/2019. Estimated date of delivery (EKTA) from first dating scan: 01/06/2020. The below data below was generated using the provided EKTA of 01/10/2021 TECHNIQUE: Real-time scanning was performed of the fetus, with image documentation. Endovaginal scanning: Not performed COMPARISON: 12/03/2020, 12/02/2020, 11/29/2020, 11/16/2020, 06/24/2011 FINDINGS: A single living intrauterine gestation is present. Presentation: Vertex Placenta: Placental position is anterior, without previa. Amniotic fluid index: 15.9 cm, normal for gestational age. Largest pocket is 4.4 cm. heart rate: 136 beats per minutes. Maternal cervix: Cervix not visualized. Estimated gestational age from initial scan: 35 weeks 0 days. IMPRESSION: Single living intrauterine gestation with CORTEZ of 15.9 cm and largest pocket 4.4 cm. Reviewed by: Kraig Abraham MD on 12/07/2020 9:05 AM PDT Approved by: Kraig Abraham MD on 12/07/2020 9:05 AM PDT Station ID: [id number]
== END 2020-12-06 16:26 | disposition home or self-care (01) ==
LOC: DI 16:25
PROVIDERS: ATTEND Obstetrics & Gynecology
DX: O24.419 Gestational diabetes mellitus in pregnancy, unspecified control (principal)

== ENCOUNTER 2020-12-06 16:47 | Outpatient (CLI) | payer OTHER ==
[2020-12-06 17:22] VITALS: BP 126/71
--- NOTE | 2020-12-07 17:31 | PROCEDURE REPORT ---
- HPI Diagnosis/Indication for NST: Gestational Diabetes Current EDU 01/10/21 Gestation 35 Weeks and 0 Days 1 Para 0 Vital Signs Temperature 99.3 F 12/06/20 17:00 Heart Rate 84 12/06/20 17:00 Respiratory Rate 18 12/06/20 17:00 Blood Pressure 126/71 12/06/20 17:00 O2 Saturation 98 12/06/20 17:00 Temperature 99.3 F 12/06/20 17:00 Heart Rate 84 12/06/20 17:00 Respiratory Rate 18 12/06/20 17:00 Blood Pressure 126/71 12/06/20 17:00 O2 Saturation 98 12/06/20 17:00 - NST Procedure NST Procedure Start Date 12/06/20 Start Time 17:05 Stop Time 18:18 Vibroacoustic Stimulation Used Yes Patient States Movement No 40 yo at 35 0/7 with Gestational Diabetes for NST. NST: 130's with Moderate Variability and Accelerations 15X15 and no decelerations. No contractions. Category I and Reactive monitor. P-Keep all appointments.
== END 2020-12-06 18:00 | disposition home or self-care (01) ==
LOC: FBP 16:47 → WFO 16:47
PROVIDERS: ATTEND Obstetrics & Gynecology
DX: O24.419 Gestational diabetes mellitus in pregnancy, unspecified control (principal); Z3A.35 35 weeks gestation of pregnancy
CPT/HCPCS: 59025

== ENCOUNTER 2020-12-09 13:59 | Outpatient (CLI) | payer OTHER ==
[2020-12-09 14:12] VITALS: BP 129/63
--- NOTE | 2020-12-09 18:07 | PROCEDURE REPORT ---
- HPI Current EDU 12/10/20 Gestation 39 Weeks and 6 Days 1 Para 0 Vital Signs Temperature 98.3 F 12/09/20 14:08 Heart Rate 83 12/09/20 14:08 Blood Pressure 129/63 12/09/20 14:08 O2 Saturation 97 12/09/20 14:08 Temperature 98.3 F 12/09/20 14:08 Heart Rate 83 12/09/20 14:08 Respiratory Rate Blood Pressure 129/63 12/09/20 14:08 O2 Saturation 97 12/09/20 14:08 - NST Procedure NST Procedure Start Date 12/09/20 Start Time 14:05 Stop Time 14:25 Vibroacoustic Stimulation Used No Patient States Movement Yes 40 yo with GDM here for NST. Patient is 39 6/7 today. NST: Baseline is 130's with moderate variability. Patient has accelerations that are 15X15. No decelerations. NST is Reactive and Category I. A-IUP 39 6/7 with GDM P- Continue monitoring and appointment.
== END 2020-12-09 14:25 | disposition home or self-care (01) ==
LOC: WFO 13:59 → FBP 14:01 → WFO 14:25
PROVIDERS: ATTEND Obstetrics & Gynecology
DX: O24.419 Gestational diabetes mellitus in pregnancy, unspecified control (principal); Z3A.39 39 weeks gestation of pregnancy
CPT/HCPCS: 59025

== ENCOUNTER 2020-12-13 16:35 | Outpatient (CLI) | payer OTHER ==
--- NOTE | 2020-12-13 19:59 | PROCEDURE REPORT ---
- NST Procedure NST Procedure Start Time 17:03 Stop Time 17:28 EFM 135 mod radha 15x15 accels no decels TOCO: one ctx n 25 min - Results and Plan Findings/Impression: 40 yo at 36+0 wga with affected by A2 gestational diabetes Cat I tracing Cont with twice weekly NSt and weekly CORTEZ Q4 week growth us IOL at 39 weeks DX: IUP at 36+0 wga Gestational diabetes DOS: 12/13/20 NST read 12/13/20
== END 2020-12-13 16:36 | disposition home or self-care (01) ==
LOC: WFO 16:35
PROVIDERS: ATTEND Obstetrics & Gynecology
DX: O24.415 Gestational diabetes mellitus in pregnancy, controlled by oral hypoglycemic drugs (principal); Z3A.36 36 weeks gestation of pregnancy
CPT/HCPCS: 59025

== ENCOUNTER 2020-12-13 16:37 | Outpatient (CLI) | payer OTHER ==
[2020-12-13 17:12] VITALS: BP 126/64
--- NOTE | 2020-12-14 09:39 | Ultrasound Report ---
PROCEDURE: OB Limited INDICATIONS: GESTATIONAL DIABETES OUTSIDE/PRIOR DATING DATA: Last menstrual period (LMP): 04/05/2020. LMP-based estimated date of delivery (EKTA): 01/10/2021. First dating scan (date and location): 06/24/2020. Estimated date of delivery (EKTA) from first dating scan: 01/05/2021. The below data below was generated using the clinician provided EKTA of 01/10/2021 TECHNIQUE: Real-time scanning was performed of the fetus, with image documentation. Endovaginal scanning: Not performed COMPARISON: 06/24/2020, 11/16/2020, 11/29/2020 FINDINGS: A single living intrauterine gestation is present. Presentation: Vertex Placenta: Placental position is anterior, without previa. Amniotic fluid index: 17.4 cm. heart rate: 132 beats per minutes. IMPRESSION: Single live intrauterine gestation. CORTEZ is 17.4 cm. Reviewed by: Kraig Abraham MD on 12/14/2020 9:37 AM PDT Approved by: Kraig Abraham MD on 12/14/2020 9:37 AM PDT Station ID: [id number]
== END 2020-12-13 17:52 | disposition home or self-care (01) ==
LOC: DI 16:37 → FBP 16:44 → DI 17:52
PROVIDERS: ATTEND Obstetrics & Gynecology
DX: O24.419 Gestational diabetes mellitus in pregnancy, unspecified control (principal); Z3A.00 Weeks of gestation of pregnancy not specified
CPT/HCPCS: 59025

== ENCOUNTER 2020-12-15 08:00 | Outpatient (CLI) | payer OTHER | END 2020-12-15 23:59 | disposition home or self-care (01) | LOC: LAB.WC 08:00 | PROVIDERS: ATTEND Obstetrics & Gynecology | DX: O09.899 Supervision of other high risk pregnancies, unspecified trimester (principal) | CPT/HCPCS: 87797 ==

== ENCOUNTER 2020-12-16 13:58 | Outpatient (CLI) | payer OTHER ==
[2020-12-16 14:13] VITALS: BP 110/59
--- NOTE | 2020-12-16 16:00 | PROCEDURE REPORT ---
- HPI Diagnosis/Indication for NST: Gestational Diabetes Current EDU 01/10/21 Gestation 36 Weeks and 3 Days 1 Para 0 Vital Signs Temperature 36.8 C 12/16/20 14:11 Heart Rate 80 12/16/20 14:11 Respiratory Rate 16 12/16/20 14:11 Blood Pressure 110/59 L 12/16/20 14:11 O2 Saturation 99 12/16/20 14:11 Temperature 36.8 C 12/16/20 14:11 Heart Rate 80 12/16/20 14:11 Respiratory Rate 16 12/16/20 14:11 Blood Pressure 110/59 L 12/16/20 14:11 O2 Saturation 99 12/16/20 14:11 - NST Procedure NST Procedure Start Date 12/16/20 Start Time 14:09 Stop Time 14:30 Vibroacoustic Stimulation Used No Patient States Movement Yes - Results and Plan Findings/Impression: Baseline 135 accelerations present Reactive NST Plan: continue testing
== END 2020-12-16 14:55 | disposition home or self-care (01) ==
LOC: WFO 13:58 → FBP 14:00 → WFO 14:55
PROVIDERS: ATTEND Obstetrics & Gynecology
DX: O24.419 Gestational diabetes mellitus in pregnancy, unspecified control (principal); Z3A.36 36 weeks gestation of pregnancy
CPT/HCPCS: 59025

== ENCOUNTER 2020-12-20 07:00 | Outpatient (CLI) | payer OTHER ==
--- NOTE | 2020-12-21 11:57 | Ultrasound Report ---
PROCEDURE: OB F/U or Repeat INDICATIONS: GDM - GROWTH. OUTSIDE/PRIOR DATING DATA: Last menstrual period (LMP): 04/05/2020. LMP-based estimated date of delivery (EKTA): 01/10/2021. First dating scan (date and location): 06/24/2020. Estimated date of delivery (EKTA) from first dating scan: 01/05/2021. The below data below was generated using the clinician provided EKTA of 01/10/2021 TECHNIQUE: Real-time scanning was performed of the fetus, with image documentation and biometric measurements. COMPARISON: 12/13/2020, 12/06/2020, 12/03/2020, 11/29/2020. FINDINGS: General: A single living intrauterine gestation is present. Presentation: Vertex Placenta: Placental position is anterior, without previa. Amniotic fluid index: 15.8 cm, within normal limits for gestational age. Largest fluid pocket measur ed 5.1 cm. heart rate: 131 beats per minute. Maternal cervical canal: Not imaged. biometrics: Biparietal diameter: 8.6 cm, 34 weeks 3 days Head circumference: 31.9 cm, 35 weeks 6 days Abdominal circumference: 32.5 cm, 36 weeks 3 days Femur length: 7.2 cm, 36 weeks 3 days Estimated gestational age from initial scan: 37 weeks 0 days Composite gestational age from present scan: 35 weeks 6 days Estimated weight and percentile: 2889 g, 36th percentile Measurement variability in biometric dating: +/- 10 days from 12-20 weeks gestation, +/- 2 weeks from 20-30 weeks gestation, +/- 3 weeks at 30 weeks gestation or more. IMPRESSION: 1. Single living intrauterine in vertex position redemonstrated with estimated weight at the 36th percentile. 2. CORTEZ within normal limits measuring 15.8 cm. Reviewed by: Heriberto Styles MD on 12/21/2020 11:55 AM PDT Approved by: Heriberto Styles MD on 12/21/2020 11:55 AM PDT Station ID: [id number]
== END 2020-12-20 23:59 | disposition home or self-care (01) ==
LOC: DI 07:00
PROVIDERS: ATTEND Obstetrics & Gynecology
DX: O24.419 Gestational diabetes mellitus in pregnancy, unspecified control (principal)

== ENCOUNTER 2020-12-20 16:30 | Outpatient (CLI) | payer OTHER ==
[2020-12-20 17:22] VITALS: BP 114/51
--- NOTE | 2020-12-22 20:04 | PROCEDURE REPORT ---
- HPI Diagnosis/Indication for NST: Gestational Diabetes Current EDU 01/10/21 Gestation 37 Weeks and 0 Days 1 Para 0 Vital Signs Temperature 36.8 C 12/20/20 16:45 Heart Rate 76 12/20/20 16:45 Respiratory Rate 16 12/20/20 16:45 Blood Pressure 114/51 L 12/20/20 16:45 O2 Saturation 98 12/20/20 16:45 Temperature 36.8 C 12/20/20 16:45 Heart Rate 76 12/20/20 16:45 Respiratory Rate 16 12/20/20 16:45 Blood Pressure 114/51 L 12/20/20 16:45 O2 Saturation 98 12/20/20 16:45 - NST Procedure NST Procedure Start Date 12/20/20 Start Time 16:44 Stop Time 17:50 Vibroacoustic Stimulation Used No Patient States Movement Yes - Results and Plan Findings/Impression: Baseline 125 accelerations noted good variability. Occasional irregular contractionsGraft Plan: Continue NSTs until delivery. Date of service 2020
== END 2020-12-20 17:10 | disposition home or self-care (01) ==
LOC: DI 16:30 → FBP 16:30 → DI 17:10
PROVIDERS: ATTEND Obstetrics & Gynecology
DX: O24.419 Gestational diabetes mellitus in pregnancy, unspecified control (principal); Z3A.37 37 weeks gestation of pregnancy
CPT/HCPCS: 59025

== ENCOUNTER 2020-12-23 13:56 | Outpatient (CLI) | payer OTHER ==
[2020-12-23 14:07] VITALS: BP 129/61
--- NOTE | 2021-01-01 03:50 | PROCEDURE REPORT ---
- HPI Diagnosis/Indication for NST: Gestational Diabetes Current EDU 01/10/21 Gestation 37 Weeks and 3 Days 1 Para 0 Vital Signs Temperature 98.2 F 12/23/20 14:04 Heart Rate 83 12/23/20 14:04 Respiratory Rate 18 12/23/20 14:04 Blood Pressure 129/61 12/23/20 14:04 O2 Saturation 100 12/23/20 14:04 Temperature 98.2 F 12/23/20 14:04 Heart Rate 83 12/23/20 14:04 Respiratory Rate 18 12/23/20 14:04 Blood Pressure 129/61 12/23/20 14:04 O2 Saturation 100 12/23/20 14:04 - NST Procedure NST Procedure Start Date 12/23/20 Start Time 14:00 Stop Time 14:30 Vibroacoustic Stimulation Used No Patient States Movement Yes EFM 135 mod/marked radha 15x15 accels no decels TOCO: irritable - Results and Plan Findings/Impression: 40 yo at 37+3 wga with affected by A2 gestational diabetes Cat I tracing Cont with twice weekly NSt and weekly CORTEZ Q4 week growth us IOL at 39 weeks DX: IUP at 37+3 wga Gestational diabetes DOS: 12/23/20 NST read 12/23/20
== END 2020-12-23 14:30 | disposition home or self-care (01) ==
LOC: WFO 13:56 → FBP 13:57 → WFO 14:30
PROVIDERS: ATTEND Obstetrics & Gynecology
DX: O24.419 Gestational diabetes mellitus in pregnancy, unspecified control (principal); Z3A.37 37 weeks gestation of pregnancy
CPT/HCPCS: 59025

== ENCOUNTER 2020-12-30 14:43 | Outpatient (CLI) | payer OTHER ==
[2020-12-30 15:05] VITALS: BP 115/59
--- NOTE | 2021-01-01 04:38 | PROCEDURE REPORT ---
- HPI Current EDU 01/10/21 Gestation 38 Weeks and 3 Days 1 Para 0 Vital Signs Temperature 98.2 F 12/30/20 15:03 Heart Rate 96 12/30/20 15:03 Blood Pressure 115/59 L 12/30/20 15:03 O2 Saturation 100 12/30/20 15:03 Temperature 98.2 F 12/30/20 15:03 Heart Rate 96 12/30/20 15:03 Respiratory Rate Blood Pressure 115/59 L 12/30/20 15:03 O2 Saturation 100 12/30/20 15:03 - NST Procedure NST Procedure Start Date 12/30/20 Start Time 14:50 Stop Time 15:45 Vibroacoustic Stimulation Used No Patient States Movement Yes EFM 135 mod radha 15x15 accels no decels TOCO: Intermittent - Results and Plan Plan: 40 yo at 38+3 wga with affected by A2 gestational diabetes Cat I tracing Cont with twice weekly NSt and weekly CORTEZ Q4 week growth us IOL at 39 weeks DX: IUP at 38+3 wga Gestational diabetes DOS: 12/30/20 NST read 12/30/20
== END 2020-12-30 15:50 | disposition home or self-care (01) ==
LOC: WFO 14:43 → FBP 14:45 → WFO 15:50
PROVIDERS: ATTEND Obstetrics & Gynecology
DX: O24.419 Gestational diabetes mellitus in pregnancy, unspecified control (principal); Z3A.38 38 weeks gestation of pregnancy
CPT/HCPCS: 59025

== ENCOUNTER 2020-12-31 15:56 | Outpatient (CLI) | payer OTHER | END 2020-12-31 15:57 | disposition home or self-care (01) | LOC: LAB 15:56 | PROVIDERS: ATTEND Obstetrics & Gynecology | DX: Z01.812 Encounter for preprocedural laboratory examination (principal); O09.899 Supervision of other high risk pregnancies, unspecified trimester; Z20.822 Contact with and (suspected) exposure to COVID-19 ==

== ENCOUNTER 2021-01-03 07:56 | Inpatient (IN) | payer OTHER ==
[2021-01-03] MEDS ORDERED: fentaNYL 100 MCG/2 ML VIAL IVP PRN (08:27)
[2021-01-03] MEDS ORDERED: METOCLOPRAMIDE 10 MG TABLET PO PRN (08:27)
[2021-01-03] MEDS ORDERED: CARBOPROST TROMETHAMINE 250 MCG/ML AMP IM PRN ×2 (08:27→18:23)
[2021-01-03] MEDS ORDERED: OXYTOCIN/SODIUM CHLORIDE 500 ML IV PRN ×2 (08:27→18:23)
[2021-01-03] MEDS ORDERED: SODIUM CHLORIDE FLUSH 0.9% 10 ML SYRINGE IVP PRN (08:27)
[2021-01-03] MEDS ORDERED: LIDOCAINE-MPF 1% 30 ML VIAL ID PRN ×2 (08:27→18:23)
[2021-01-03] MEDS ORDERED: PROMETHAZINE 25 MG TABLET PO PRN (08:27)
[2021-01-03] MEDS ORDERED: miSOPROStoL 200 MCG TABLET BC PRN ×2 (08:27→18:23)
[2021-01-03] MEDS ORDERED: ONDANSETRON ODT 4 MG TABLET TL PRN (08:27)
[2021-01-03] MEDS ORDERED: ACETAMINOPHEN 325 MG TABLET PO PRN (08:27)
[2021-01-03] MEDS ORDERED: METOCLOPRAMIDE 10 MG/2 ML VIAL IVP PRN (08:27)
[2021-01-03] MEDS ORDERED: OXYTOCIN 10 UNIT/ML VIAL IM PRN ×2 (08:27→18:23)
[2021-01-03] MEDS ORDERED: TRANEXAMIC ACID IN NACL 1,000 MG/100 ML BAG IV PRN ×2 (08:27→18:23)
[2021-01-03] MEDS ORDERED: METHYLERGONOVINE 0.2 MG/ML VIAL IM PRN ×2 (08:27→18:23)
[2021-01-03] MEDS ORDERED: AMPICILLIN 2 GM in SODIUM CHLORIDE 0.9% MINIBAG 100 ML IV ONE (09:02)
[2021-01-03 09:24] LABS: BASOPHILS % (AUTO) 0.4 %; EOSINOPHILS # (AUTO) 0.1 10^3/uL (0.0-0.7); EOSINOPHILS % (AUTO) 0.8 %; HCT - HEMATOCRIT 37.7 % (37.0-47.0); HGB - HEMOGLOBIN 12.5 g/dL (12.0-16.0); LYMPHOCYTES # (AUTO) 2.3 10^3/uL (1.5-3.5); LYMPHOCYTES % (AUTO) 20.6 %; MEAN CORPUSCULAR HEMOGLOBIN 31.8 pg (27.0-31.0); MEAN CORPUSCULAR HGB CONC 33.2 g/dL (32.0-36.0); MEAN CORPUSCULAR VOLUME 95.9 fL (81.0-99.0); MEAN PLATELET VOLUME 12.1 fL (7.9-10.8); MONOCYTES # (AUTO) 0.6 10^3/uL (0.0-1.0); MONOCYTES % (AUTO) 5.8 %; NEUTROPHILS % (AUTO) 71.5 %; PLT - PLATELET COUNT 244 10^3/uL (130-450); RED BLOOD COUNT 3.93 10^6/uL (4.20-5.40); RED CELL DISTRIBUTION WIDTH 14.2 % (12.0-15.0); WHITE BLOOD COUNT 11.1 x10^3/uL (4.8-10.8)
[2021-01-03] MEDS: SODIUM CHLORIDE FLUSH 0.9% 10 ML SYRINGE IVP SCH ×2 (09:44→21:54)
[2021-01-03] MEDS: miSOPROStoL 100 MCG TABLET BC SCH ×4 (09:44→21:54)
[2021-01-03] MEDS: AMPICILLIN 1 GM in SODIUM CHLORIDE 0.9% MINIBAG 100 ML IV SCH (15:46)
[2021-01-03] MEDS ORDERED: AMPICILLIN 2 GM in SODIUM CHLORIDE 0.9% MINIBAG 100 ML IV SCH (16:00)
[2021-01-03] MEDS ORDERED: NIFEdipine 10 MG CAPSULE PO PRN (18:23)
[2021-01-03] MEDS ORDERED: LABETALOL 20 MG/4 ML SYRINGE IVP PRN ×3 (18:23)
[2021-01-03] MEDS ORDERED: hydrALAZINE INJ 20 MG/ML VIAL IVP PRN ×2 (18:23)
[2021-01-03] MEDS ORDERED: TERBUTALINE 1 MG/ML VIAL SUBQ PRN (18:23)
[2021-01-03] MEDS ORDERED: FAMOTIDINE 20 MG TABLET PO SCH (21:00)
[2021-01-04] MEDS: miSOPROStoL 100 MCG TABLET BC SCH ×4 (01:59→16:13)
[2021-01-04] MEDS: LEVOTHYROXINE 100 MCG TABLET PO SCH (06:35)
[2021-01-04] MEDS ORDERED: LEVOTHYROXINE 25 MCG TABLET PO SCH (07:00)
[2021-01-04] MEDS: SODIUM CHLORIDE FLUSH 0.9% 10 ML SYRINGE IVP SCH ×3 (09:10→15:41)
[2021-01-04] MEDS: FAMOTIDINE 20 MG TABLET PO SCH (09:10)
--- NOTE | 2021-01-04 09:26 | HISTORY & PHYSICAL EXAMINATION ---
Admit History - Visit Reason Visit Reason: Other (Induction of Labor) - : 1 Parity: 0 Complications This : positive: Gestational diabetes Smoking Status: Former smoker - Mother's Labs Mother's Blood Type: positive: O Mother's RH: positive: Positive GBS: positive: Group B Strep Positive Rubella Status: positive: Immune - Other Maternal History Other Maternal History: HPI: 40-year-old G1, P0 at 39 weeks 0 days gestation by LMP consistent with 12-week ultrasound admitted for induction of labor. Denies loss of fluid. No AMADOR/BV or RUQP. Complications A2 gestational diabetes diagnosed at 28 weeks after an elevated 1 hour GTT of 146 and failed 3-hour GTT. She was managed with Metformin during this at the current dose of 1000 g with dinner. PMH GERD PSH Mcbrides tooth removal ORIF in right leg OB History SH Previous smoker. No alcohol or drug use. Family History Father: Diabetes Mother: Obesity, arthritis Sister: Asthma Maternal grandfather: Diabetes, hypertension Paternal grandfather: Diabetes, hypertension Maternal grandmother: Diabetes Maternal grandfather: Diabetes Allergies No known drug allergies Medications Metformin 500 mg 2 tabs at dinner Pantoprazole 20 mg daily Levothyroxine 50 mcg daily vitamins Immunizations Tdap: 10/21/2020 Labs Blood type: O Rhesus (D) type: Positive Antibody screen: Negative Initial H/H/PLT: 13.9/41.4/245. 3rd trimester H/H/PLT: 12.5/37.7/244 Rubella: Immune HBsAg: Negative RPR/AB-EIA: Negative HIV: Negative PAP: Normal Gonorrhea: Negative Chlamydia: Negative 50 gm OGCT: 146 3hr GTT: 97/199/165/105 GBS: Positive NIPT: Negative Meds/Allgy - Home Medications Home Medications: Ambulatory Orders Medication Instructions Recorded Confirmed Pnv No.95/Ferrous Fum/Folic AC 1 each PO DAILY 05/06/17 11/23/20 [ Formula Tablet] Doxepin [SINEquan] 25 mg PO DAILY 03/06/19 03/06/19 Levothyroxine Sodium [Synthroid] 50 mcg PO DAILY 11/23/20 11/23/20 Sucralfate [Carafate] 1 tablet PO ACHS 11/23/20 11/23/20 metFORMIN [Glucophage] 500 mg PO DAILY 11/23/20 11/23/20 - Allergies Allergies/Adverse Reactions: Allergies Allergy/AdvReac Type Severity Reaction Status Date / Time dichloralphenazone Allergy dilated Verified 05/09/19 17:51 [From Midrin] pupils isometheptene [From Midrin] Allergy Unknown Verified 05/09/19 17:51 Review of Systems - Constitutional Constitutional: denies: Fever, Chills, Poor appetite, Night sweats - Cardiovascular Cariovascular: denies: Palpitations, Chest pain, Syncope - Respiratory Respiratory: denies: Cough, Wheezing - Genitourinary Genitourinary: denies: Dysuria - Integumentary Integumentary: denies: Rash - Neurological Neurological: denies: General weakness, Dizziness - Psychiatric Psychiatric: denies: Depression, Anxiety - All Other Systems All Other Systems: reports: Reviewed and negative Physical - Abdominal Exam Vital Signs: Temp Pulse Resp BP Pulse Ox 98.1 F 92 18 121/72 99 01/03/21 08:48 01/03/21 08:48 01/03/21 08:48 01/03/21 08:48 01/03/21 08:39 Contraction Frequency (min/apart): Irregular Contraction Intensity: positive: Mild Uterine Resting Tone: positive: Soft - Monitoring Heart Rate Baseline: 135 bpm, moderate variability, accelerations present, no decelerations Strip Review: positive: Category I - Presentation Presentation: positive: Vertex - Vaginal Exam Membranes: positive: Membranes intact Dilation (in cm): 1 Effacement (%): 50 Station: positive: -3 Cervical Position: positive: Posterior - Speculum Exam Speculum Exam Performed: positive: No Plan for Labor - Plan For Labor I expect patient to be DC'd or transferred within 96 hours.: No Plan for Labor: 40-year-old G1, P0 at 39 weeks 0 days gestation admitted for induction of labor secondary to A2 gestational diabetes 1. 39 weeks gestation -Admit to labor and delivery, admit labs -Start induction of labor with measle Postel 25 mcg buccal every 4 hours -Plan for amniotomy and spontaneous vaginal delivery 2. A2 gestational diabetes managed with oral antihyperglycemic's -Continue Metformin 1000 mg with dinner 3. GERD -Famotidine 20 mg every morning per patient preference
[2021-01-04] MEDS ORDERED: AMPICILLIN 2 GM in SODIUM CHLORIDE 0.9% MINIBAG 100 ML IV ONE (15:45)
[2021-01-04] MEDS: AMPICILLIN 1 GM in SODIUM CHLORIDE 0.9% MINIBAG 100 ML IV SCH ×6 (16:09→20:45)
[2021-01-04] MEDS: LACTATED RINGERS 1,000 ML IV SCH ×5 (16:09→23:43)
--- NOTE | 2021-01-04 17:24 | PROVIDER PROGRESS NOTE ---
Subjective - Prog Note Date Prog Note Date: 01/04/21 Prog Note Time: 17:21 - Subjective Subjective: Late entry Assumed care from Dr. Boogie at 8:00 Patient had received misoprostol 25-50 mcg BC x6 doses FBG 85, 1H PP 90 EFM 130 mod radha 15x15 accels no decels TOCO: intermittent SVE: 240/-2 Cook-Shea balloon placed 60 cc NS in uterine balloon, 40 cc in vaginal balloon. Started ampicillin for GBS positive cultures cat I tracing Will start low dose pitocin. Anticpate Objective - Vital Signs/Intake & Output Intake & Output: Intake & Output 01/01/21 01/02/21 01/03/21 01/04/21 23:59 23:59 23:59 23:59 Intake Total 500 1000 Balance 500 1000 - Lab Results Fish Bones: 01/03/21 09:00 Other Labs: Lab Results x24hrs 01/04/21 01/04/21 01/04/21 Range/Units 13:06 10:00 06:34 POC Whole Bld Glucose 127 H 90 85 (70 - 100) mg/dL 01/03/21 Range/Units 23:25 POC Whole Bld Glucose 110 H (70 - 100) mg/dL
[2021-01-04] MEDS ORDERED: OXYTOCIN/SODIUM CHLORIDE 500 ML IV SCH (18:00)
[2021-01-04] MEDS: ONDANSETRON 4 MG/2 ML VIAL IVP PRN ×2 (19:40→23:48)
--- NOTE | 2021-01-04 20:31 | PROVIDER PROGRESS NOTE ---
Subjective - Prog Note Date Prog Note Date: 01/04/21 Prog Note Time: 20:27 - Subjective Subjective: Shea balloon had fallen out spontaneously Patient is increasingly uncomfortable. Has had one dose of fentanyl 50 mcg Pitocin currently at 3 mU/min EFM 135 mod radha 15x15 accels no decels TOCO: irreg SVE 4.5/C/BBOW head sitting high on pubic bone, suspect OP position Patient desires epidural; Anesthesia contacted BPs in normal range BG all within range Cont with pitocin Confirmed has received one dose of ampicillin Cat I tracing Objective - Vital Signs/Intake & Output Intake & Output: Intake & Output 01/01/21 01/02/21 01/03/21 01/04/21 23:59 23:59 23:59 23:59 Intake Total 500 1102.467 Balance 500 1102.467 - Lab Results Fish Bones: 01/03/21 09:00 Other Labs: Lab Results x24hrs 01/04/21 01/04/21 01/04/21 Range/Units 18:34 13:06 10:00 POC Whole Bld Glucose 123 H 127 H 90 (70 - 100) mg/dL 01/04/21 01/03/21 Range/Units 06:34 23:25 POC Whole Bld Glucose 85 110 H (70 - 100) mg/dL
[2021-01-04] MEDS ORDERED: ROPIVACAINE 0.2% 200 MG/100 ML BAG EP ONE (20:46)
[2021-01-04] MEDS ORDERED: ROPIVACAINE 0.2% 200 MG/100 ML BAG EP PRN (21:18)
--- NOTE | 2021-01-04 21:18 | ANESTHESIA ---
Pre-Anesthesia VS, & Labs - Diagnosis active labor - Procedure vaginal delivery Vital Signs: Temp Pulse Resp BP Pulse Ox 36.7 C 92 18 121/72 99 01/03/21 08:48 01/03/21 08:48 01/03/21 08:48 01/03/21 08:48 01/03/21 08:39 Height: 5 ft 5 in Weight (kg): 114.759 kg Body Mass Index: 42.0 BMI Classification: Morbidly Obese - NPO Other (clear liquids) - Is Patient ?: No - Lab Results Current Lab Results: Laboratory Tests 01/04/21 18:34: POC Whole Bld Glucose 123 H 01/04/21 13:06: POC Whole Bld Glucose 127 H 01/04/21 10:00: POC Whole Bld Glucose 90 01/04/21 06:34: POC Whole Bld Glucose 85 01/03/21 23:25: POC Whole Bld Glucose 110 H 01/03/21 16:57: POC Whole Bld Glucose 85 01/03/21 12:03: POC Whole Bld Glucose 113 H 01/03/21 09:00: Blood Type O POSITIVE, Antibody Screen NEGATIVE 01/03/21 09:00: WBC 11.1 H, RBC 3.93 L, Hgb 12.5, Hct 37.7, MCV 95.9, MCH 31.8 H , MCHC 33.2, RDW 14.2, Plt Count 244, MPV 12.1 H, Neut # (Auto) 8.0 H, Lymph # (Auto) 2.3, [place] # (Auto) 0.6, Eos # (Auto) 0.1, Baso # (Auto) 0.0, Absolute Nucleated RBC 0.00, Nucleated RBC % 0.0 Fish Bones: 01/03/21 09:00 Home Medications and Allergies Active Medications Acetaminophen (Acetaminophen 325 Mg Tablet) 650 mg PO Q6H PRN PRN Reason: Pain or Fever Carboprost Tromethamine (Carboprost Tromethamine 250 Mcg/Ml Amp) 250 mcg IM Q15M PRN PRN Reason: Step 4: Hemorrhage protocol Stop: 01/08/21 18:26 Famotidine (Famotidine 20 Mg Tablet) 20 mg PO DAILY YANCI Last Admin: 01/04/21 09:10 Dose: 20 mg Documented by: Fentanyl (Fentanyl 100 Mcg/2 Ml Vial) 50 mcg IVP Q1H PRN PRN Reason: PAIN Last Admin: 01/04/21 19:40 Dose: 50 mcg Documented by: Hydralazine HCl (Hydralazine Inj 20 Mg/Ml Vial) 5 - 20 mg IVP Q20M PRN; Protocol PRN Reason: SBP >160 or DBP >110 Hydralazine HCl (Hydralazine Inj 20 Mg/Ml Vial) 10 mg IVP .ONCE PRN; Protocol PRN Reason: Step 9 of Labetalol protocol Stop: 01/08/21 18:26 Oxytocin/Sodium Chloride (Pitocin/Sodium Chloride) 500 mls @ 999 mls/hr IV PRN PRN; Protocol PRN Reason: POST- HEMORR PREVENTION Stop: 01/08/21 08:28 Tranexamic Acid (Tranexamic 1,000 Mg/100ml-Nacl) 1,000 mg in 100 mls @ 600 mls/hr IV .ONCE PRN PRN Reason: EBL >1200mL and within 3hr Stop: 01/08/21 08:28 Lactated Ringer's (Lr) 1,000 mls @ 100 mls/hr IV .Q10H YANCI Last Admin: 01/04/21 17:32 Dose: 100 mls/hr Documented by: Ampicillin Sodium 1 gm/ Sodium (Chloride) 100 mls @ 200 mls/hr IV Q4H YANCI Last Admin: 01/04/21 20:45 Dose: 200 mls/hr Documented by: Oxytocin/Sodium Chloride (Pitocin/Sodium Chloride) 500 mls @ 1 mls/hr IV TITR YANCI; Protocol Last Titration: 01/04/21 20:00 Dose: 3 milliunit/min, 3 mls/hr Documented by: Labetalol HCl (Labetalol 20 Mg/4 Ml Syringe) 20 - 80 mg IVP Q10M PRN; Protocol PRN Reason: SBP >160 or DBP >110 Labetalol HCl (Labetalol 20 Mg/4 Ml Syringe) 20 mg IVP .ONCE PRN; Protocol PRN Reason: Step 9 of nifedipine protocol Stop: 01/08/21 18:26 Labetalol HCl (Labetalol 20 Mg/4 Ml Syringe) 40 mg IVP .ONCE PRN; Protocol PRN Reason: Step 9 of hydrALAZine protocol Stop: 01/08/21 18:26 Levothyroxine Sodium (Levothyroxine 100 Mcg Tablet) 50 mcg PO QDAC [facility] Last Admin: 01/04/21 06:35 Dose: 50 mcg Documented by: Lidocaine HCl (Lidocaine-Mpf 1% 30 Ml Vial) 30 ml ID .ONCE PRN PRN Reason: PERINEAL REPAIR Stop: 01/08/21 18:26 Methylergonovine Maleate (Methylergonovine 0.2 Mg/Ml Vial) 0.2 mg IM .ONCE PRN PRN Reason: Step 2: Hemorrhage protocol Stop: 01/08/21 18:26 Metoclopramide HCl (Metoclopramide 10 Mg Tablet) 10 mg PO Q6H PRN PRN Reason: Nausea / Vomiting Metoclopramide HCl (Metoclopramide 10 Mg/2 Ml Vial) 10 mg IVP Q6H PRN PRN Reason: Nausea / Vomiting Misoprostol (Misoprostol 200 Mcg Tablet) 800 mcg BC .ONCE PRN PRN Reason: Step 3: Hemorrhage protocol Stop: 01/08/21 08:28 Misoprostol (Misoprostol 100 Mcg Tablet) 25 mcg BC Q4H [facility] Last Admin: 01/04/21 16:13 Dose: Not Given Documented by: Misoprostol (Misoprostol 200 Mcg Tablet) 800 mcg BC .ONCE PRN PRN Reason: Step 3: Hemorrhage protocol Stop: 01/08/21 18:26 Nifedipine (Nifedipine 10 Mg Capsule) 10 - 20 mg PO Q20M PRN; Protocol PRN Reason: SBP >160 or DBP >110 Ondansetron HCl (Ondansetron 4 Mg/2 Ml Vial) 4 mg IVP Q4HR PRN PRN Reason: Nausea / Vomiting Last Admin: 01/04/21 19:40 Dose: 4 mg Documented by: Ondansetron HCl (Ondansetron Odt 4 Mg Tablet) 4 mg TL Q4HR PRN PRN Reason: Nausea / Vomiting Oxytocin (Oxytocin 10 Unit/Ml Vial) 10 unit IM .ONCE PRN PRN Reason: Step one: If no IV access Stop: 01/08/21 18:26 Promethazine HCl (Promethazine 25 Mg Tablet) 25 mg PO Q6H PRN PRN Reason: Nausea / Vomiting Sodium Chloride (Sodium Chloride Flush 0.9% 10 Ml Syringe) 10 ml IVP 0100,0900,1700 [facility] Last Admin: 01/04/21 15:41 Dose: 10 ml Documented by: Sodium Chloride (Sodium Chloride Flush 0.9% 10 Ml Syringe) 10 ml IVP PRN PRN PRN Reason: NEEDED PER PROVIDER ORDERS Terbutaline Sulfate (Terbutaline 1 Mg/Ml Vial) 0.25 mg SUBQ Q1H PRN PRN Reason: tachysystole Pnv No.95/Ferrous Fum/Folic AC [ Formula Tablet] 1 each PO DAILY 05/06/17 Doxepin [SINEquan] 25 mg PO DAILY 03/06/19 Levothyroxine Sodium [Synthroid] 50 mcg PO DAILY 11/23/20 Sucralfate [Carafate] 1 tablet PO ACHS 11/23/20 metFORMIN [Glucophage] 500 mg PO DAILY 11/23/20 Allergies/Adverse Reactions: Allergies Allergy/AdvReac Type Severity Reaction Status Date / Time dichloralphenazone Allergy dilated Verified 05/09/19 17:51 [From Midrin] pupils isometheptene [From Midrin] Allergy Unknown Verified 05/09/19 17:51 Anes History & Medical History - Anesthetic History Anesthesia Complications: reports: No previous complications - Medical History Cardiovascular: reports: None Pulmonary: reports: None Gastrointestinal: reports: None Urinary: reports: Kidney stones Neuro: reports: None Musculoskeletal: reports: None Endocrine/Autoimmune: reports: HyPOthyroidism, Other (gestational diabetes) Blood Disorders: reports: None Skin: reports: None Smoking Status: Former smoker Psychosocial: reports: No issues indicated History of Cancer?: No - Surgical History General: reports: Colonoscopy, Other Eyes Ears Nose Throat (EENT): reports: Other Gynecologic: Orthopedic: reports: Other (ORIF Ankle) Dermatologic: reports: Skin cancer surgery - Obstetrical History : 1 Parity: 0 Complications: reports: Gestational diabetes Exam General: Alert, Oriented x3, Cooperative, No acute distress Dental: WNL Mouth Openin Fingerbreadth Neck Mobility: Normal Mallampati classification: II Thyromental Distance: 4-6 cm Mental/Cognitive Status: Alert/Oriented X3, Normal for patient Plan Anesthesia Type: Epidural Consent for Procedure(s) Verified and Reviewed: Yes Code Status: Attempt Resuscitation ASA classification: 2-Mild systemic disease Is this case an emergency?: No
[2021-01-05] MEDS: AMPICILLIN 1 GM in SODIUM CHLORIDE 0.9% MINIBAG 100 ML IV SCH ×2 (01:00→05:00)
[2021-01-05] MEDS: ONDANSETRON 4 MG/2 ML VIAL IVP PRN (04:02)
[2021-01-05] MEDS ORDERED: HYDROCORTISONE 1% CREAM 28 GM TUBE PR PRN (06:47)
[2021-01-05] MEDS ORDERED: SIMETHICONE CHEW 80 MG TABLET PO PRN (06:47)
--- NOTE | 2021-01-05 06:52 | DELIVERY NOTE ---
Delivery Note - Infant Delivery Method Infant Delivery Method: positive: Spontaneous vaginal delivery - Cervical Ripening Method Cervical Ripening Method: positive: Balloon device, Misoprostil - Presentation Presentation: positive: Vertex - Nuchal Cord Nuchal Cord: positive: None - Anesthetic Anesthetic Type: - Episiotomy Type Episiotomy Type: positive: None - Laceration Laceration: positive: 2nd degree, Vaginal - Suture Suture Type: positive: Vicryl Suture Size: positive: 3-0 - Delivery Outcome Delivery Outcome: positive: Livebirth - : positive: Placed in direct skin contact with mother, Warmed, Rosebud used sex: positive: Female - Cord Cord: positive: 3 vessels - Placenta Placenta: positive: Intact, Expressed - Estimated Blood Loss Estimated Blood Loss (in cc): 100 - Post Delivery Events Post Delivery Events: positive: No post delivery events - Delivery Comments (Free Text/Narrative) Delivery Comments (Free Text/Narrative): Patient is a 40 yo admitted on 01/03/21 at 39+0 wga for A2DM. STAGE I: Confirmed vertex at admission with BSUS. Initial SVE was 1/50/-3. Cynthia lockhart was given misoprostol x 6 doses. She then had a Shea balloon placed. She was GBs positive and prophylaxis with ampicillin was started at time of Shea balloon placement. She received a total of 4 doses fo ampicillin prior to delivery. She had one dose of fentanyl 50 mcg IV prior to placement of an epidural for pain management. Pitocin was initiated for induction, reaching a max dose of 5 mU/min. Blood sugars were all in appropriate range during Stage I labor. Spontaneous rupture of membranes at 2:45 am on 01/05/21, clear fluid. Complete cervical dilation on 01/05/21 at 5:20 am. Category I tracing throughout Stage I labor. STAGE II: Patient pushed well for less than 23 minutes, delivering a viable female infant from CHETNA presentation at 5:43 am. Partial compound presentation with right/posterior hand present at face. Anterior shoulder delivered without difficulty. was delivered to maternal chest. No nuchal cord. Cord was clampedx2 and cut by FOB after pulsations had ceased. Apgars were 8/9 and weight was 3335g. STAGE III: Placenta delivered via manual expression at 6:02. It was examined and found to be intact. Inspection of the perineum revealed a midline 2nd degree laceration that was repaired in the usual sterile fashion in layers using 3-0 Vicryl. Good hemostasis was noted. EBL 100 mL. Procedure was well tolerated and without complication.
[2021-01-05] MEDS: LEVOTHYROXINE 100 MCG TABLET PO SCH (07:29)
[2021-01-05] MEDS: DOCUSATE SODIUM 100 MG CAPSULE PO PRN ×2 (09:16→21:50)
[2021-01-05] MEDS: FAMOTIDINE 20 MG TABLET PO SCH (09:16)
[2021-01-05] MEDS: ACETAMINOPHEN 500 MG TABLET PO PRN ×2 (09:16→21:50)
[2021-01-05] MEDS: IBUPROFEN 600 MG TABLET PO PRN ×2 (09:16→21:50)
[2021-01-05] MEDS: LACTATED RINGERS 1,000 ML IV SCH ×2 (19:13→19:14)
[2021-01-05] MEDS: SODIUM CHLORIDE FLUSH 0.9% 10 ML SYRINGE IVP SCH ×2 (19:13→19:14)
--- NOTE | 2021-01-06 00:38 | Discharge Plan ---
Discharge Plan Problem Reviewed?: Yes Disposition: Home, Self Care Condition: Good Prescriptions: Acetaminophen [Acetaminophen Extra Strength] 1,000 mg PO Q8H PRN #60 tablet PRN Reason: Pain Docusate Sodium 100Mg Capsule [Colace 100Mg Capsule] 100 - 200 mg PO BID PRN #60 cap PRN Reason: Constipation Ibuprofen [Motrin] 600 mg PO Q6H PRN #60 tab PRN Reason: Pain Activity Restrictions: Additional Comments (Nothing in the vagina for 6 weeks: No intercourse, tampons, douching Call for: -Fever greater than 100.5 - Pain that does not improve with pain medication -Heavy bleeding in which you are soaking a pad an hour for 2 hours in a row No tub baths or hot tubs for 4 weeks) Additional Instructions or Follow Up instructions: Ibuprofen 600 mg by mouth every 6 hours as needed for pain Acetaminophen 500-1000 mg by mouth every 8 hours as needed for pain Docusate 100-200 mg by mouth twice a day as needed for constipation Will need 2H oral glucola tolerance test at 6 week No Smoking: If you smoke, Please STOP! Call for help. Follow-up with: Amisha Marshall MD [Provider Admit Priv/Credential] -
--- NOTE | 2021-01-06 00:38 | DISCHARGE SUMMARY ---
Discharge Summary Admit Date: 01/03/21 Discharge Date: 01/06/21 Discharging Provider: Joanna Code Status: Attempt Resuscitation Condition at Discharge: Good Discharge Disposition: 01 Home, Self Care - DIAGNOSES Admission Diagnoses: IUP at 39+0 wga Gestational diabetes AMA GBS positive Discharge Diagnoses with Status of Each Condition: Same and delivery of term gestation - HPI History of Present Illness: 40-year-old G1, P0 admitted at 39 weeks 0 days gestation by LMP consistent with 12-week ultrasound admitted for induction of labor on 01/03/21 Denies loss of fluid. No AMADOR/BV or RUQP. Complications A2 gestational diabetes diagnosed at 28 weeks after an elevated 1 hour GTT of 146 and failed 3-hour GTT. She was managed with Metformin during this at the current dose of 1000 g with dinner. - HOSPITAL COURSE Hospital Course: Patient is a 40 yo admitted on 01/03/21 at 39+0 wga for A2DM. STAGE I: Confirmed vertex at admission with BSUS. Initial SVE was 1/50/-3. Patient was given misoprostol x 6 doses. She then had a Shea balloon placed. She was GBs positive and prophylaxis with ampicillin was started at time of Seha balloon placement. She received a total of 4 doses fo ampicillin prior to delivery. She had one dose of fentanyl 50 mcg IV prior to placement of an epidural for pain management. Pitocin was initiated for induction, reaching a max dose of 5 mU/min. Blood sugars were all in appropriate range during Stage I labor. Spontaneous rupture of membranes at 2:45 am on 01/05/21, clear fluid. Complete cervical dilation on 01/05/21 at 5:20 am. Category I tracing throughout Stage I labor. STAGE II: Patient pushed well for less than 23 minutes, delivering a viable female from CHETNA presentation at 5:43 am. Partial compound presentation with right/posterior hand present at face. Anterior shoulder delivered without difficulty. was delivered to maternal chest. No nuchal cord. Cord was clampedx2 and cut by FOB after pulsations had ceased. Apgars were 8/9 and weight was 3335g. STAGE III: Placenta delivered via manual expression at 6:02. It was examined and found to be intact. Inspection of the perineum revealed a midline 2nd degree laceration that was repaired in the usual sterile fashion in layers using 3-0 Vicryl. Good hemostasis was noted. EBL 100 mL. Procedure was well tolerated and without complication. course was uncomplicated. By PPD#1, patient was meeting goals for discharge. Routine discharge instructions were given. Rh positive/Rubella immune - ALLERGIES Allergies/Adverse Reactions: Allergies Allergy/AdvReac Type Severity Reaction Status Date / Time dichloralphenazone Allergy dilated Verified 05/09/19 17:51 [From Midrin] pupils isometheptene [From Midrin] Allergy Unknown Verified 05/09/19 17:51 - MEDICATIONS Home Medications: Ambulatory Orders Medication Instructions Recorded Confirmed Pnv No.95/Ferrous Fum/Folic AC 1 each PO DAILY 05/06/17 11/23/20 [ Formula Tablet] Doxepin [SINEquan] 25 mg PO DAILY 03/06/19 03/06/19 Levothyroxine Sodium [Synthroid] 50 mcg PO DAILY 11/23/20 11/23/20 Sucralfate [Carafate] 1 tablet PO ACHS 11/23/20 11/23/20 metFORMIN [Glucophage] 500 mg PO DAILY 11/23/20 11/23/20 Acetaminophen [Acetaminophen Extra 1,000 mg PO Q8H PRN #60 tablet 01/05/21 Strength] Docusate Sodium 100Mg Capsule 100 - 200 mg PO BID PRN #60 cap 01/05/21 [Colace 100Mg Capsule] Ibuprofen [Motrin] 600 mg PO Q6H PRN #60 tab 01/05/21 - PHYSICAL EXAM AT DISCHARGE General Appearance: positive: No acute distress Respiratory: positive: No respiratory distress, Breath sounds nml Cardiovascular: positive: Regular rate & rhythm Peripheral Pulses: positive: 2+ Abdomen: positive: Non-tender, Other (FF below umbi) Skin: positive: Color nml Extremities: positive: Non-tender, No pedal edema Neurologic/Psychiatric: positive: Oriented x3 - LABS Result Diagrams: 01/03/21 09:00 - QUALITY (Female Hip Fx Only) Was patient sent home on osteoporosis medication?: No - FOLLOW UP Follow Up: [address] Marshall - TIME SPENT Time Spent in Discharge (Minutes): 30
[2021-01-06] MEDS: FAMOTIDINE 20 MG TABLET PO SCH ×2 (08:00→08:05)
[2021-01-06] MEDS: ACETAMINOPHEN 500 MG TABLET PO PRN (08:01)
[2021-01-06] MEDS: DOCUSATE SODIUM 100 MG CAPSULE PO PRN (08:04)
[2021-01-06] MEDS: IBUPROFEN 600 MG TABLET PO PRN (08:04)
[2021-01-06] MEDS: LEVOTHYROXINE 100 MCG TABLET PO SCH (08:05)
[2021-01-06 08:12] VITALS: BP 124/62
== END 2021-01-06 09:50 | disposition home or self-care (01) | DRG 807 ==
LOC: WFO 07:56 → FBP 07:58 → WFO 08:26 → UNDOADMIN 08:27 → INTOOBSV 08:27 → FBP 08:27 → OBSVTOIN 01-04 20:45
PROVIDERS: ADMIT Obstetrics & Gynecology; ATTEND Obstetrics & Gynecology
PROC: 10E0XZZ Delivery of Products of Conception, External Approach (ICD-10-PCS; principal; 2021-01-05)
PROC: 0KQM0ZZ Repair Perineum Muscle, Open Approach (ICD-10-PCS; 2021-01-05)
DX: O24.425 Gestational diabetes mellitus in childbirth, controlled by oral hypoglycemic drugs (principal); Z37.0 Single live birth; O99.824 Streptococcus B carrier state complicating childbirth; O70.1 Second degree perineal laceration during delivery; O32.6XX0 Maternal care for compound presentation, not applicable or unspecified; O99.62 Diseases of the digestive system complicating childbirth; K21.9 Gastro-esophageal reflux disease without esophagitis; Z3A.39 39 weeks gestation of pregnancy; Z87.891 Personal history of nicotine dependence; Z79.899 Other long term (current) drug therapy; Z83.3 Family history of diabetes mellitus
CPT/HCPCS: 36415; 85025; 86850; 86900; 86901; 96365; 96366; 96367; 96375; A9270; J7120

== ENCOUNTER 2021-01-21 17:26 | Emergency (ER) | payer OTHER ==
[2021-01-21 17:32] VITALS: BP 140/70
[2021-01-21] MEDS ORDERED: cephALEXin 250 MG CAPSULE PO STA (19:49)
--- NOTE | 2021-01-21 19:53 | ED Physician Documentation ---
History of Present Illness - Stated complaint Stated Complaint: LEFT BREAST PX - Chief complaint Chief Complaint: General - Additonal information Additional information: 40-year-old female presents emergency department for evaluation of left nipple pain that began about 4 days ago. She is and breast-feeding a 2-week-old. Patient states that about 4 days ago she began having increased swelling protrusion of this left nipple as well as redness. Some of the pain extends to the breast itself. She is able to manually express milk but does not tolerate her child breast-feeding on it. There have been no fevers. Review of Systems Constitutional: denies: Fever, Chills Eyes: reports: Reviewed and negative Nose: reports: Reviewed and negative Throat: reports: Reviewed and negative Cardiac: reports: Reviewed and negative Respiratory: reports: Reviewed and negative GI: reports: Reviewed and negative : reports: Reviewed and negative Skin: reports: Other (Swelling and erythema of left nipple). denies: Rash, Lesions PD PAST MEDICAL HISTORY - Past Medical History Cardiovascular: None Respiratory: None Neuro: None Endocrine/Autoimmune: HyPOthyroidism, Other (gestational diabetes) GI: None : Kidney stones HEENT: Chronic vision loss Psych: Claustrophobia Musculoskeletal: None Derm: None - Past Surgical History Past Surgical History: Yes General: Colonoscopy, Other Ortho: Other (ORIF Ankle) /PRODUCTION SUPPORT ENGINEER:  HEENT: Other Derm: Skin cancer surgery - Present Medications Home Medications: Ambulatory Orders Medication Instructions Recorded Confirmed Pnv No.95/Ferrous Fum/Folic AC 1 each PO DAILY 05/06/17 11/23/20 [ Formula Tablet] Doxepin [SINEquan] 25 mg PO DAILY 03/06/19 03/06/19 Levothyroxine Sodium [Synthroid] 50 mcg PO DAILY 11/23/20 11/23/20 Sucralfate [Carafate] 1 tablet PO ACHS 11/23/20 11/23/20 metFORMIN [Glucophage] 500 mg PO DAILY 11/23/20 11/23/20 Acetaminophen [Acetaminophen Extra 1,000 mg PO Q8H PRN #60 tablet 01/05/21 Strength] Docusate Sodium 100Mg Capsule 100 - 200 mg PO BID PRN #60 cap 01/05/21 [Colace 100Mg Capsule] Ibuprofen [Motrin] 600 mg PO Q6H PRN #60 tab 01/05/21 cephALEXin [Keflex] 500 mg PO Q6H #28 cap 01/21/21 - Allergies Allergies/Adverse Reactions: Allergies Allergy/AdvReac Type Severity Reaction Status Date / Time dichloralphenazone Allergy dilated Verified 01/21/21 17:28 [From Midrin] pupils isometheptene [From Midrin] Allergy Unknown Verified 01/21/21 17:28 - Social History Does the pt smoke?: No Smoking Status: Former smoker Does the pt drink ETOH?: No Does the pt have substance abuse?: No - Immunizations Immunizations are current?: Yes - POLST Patient has POLST: No PD ED PE EXPANDED - General General: Alert, No acute distress - Cardiac Cardiac: Regular Rate, Radial strong equal, Pedal strong equal, Cap refill < 2 sec - Respiratory Respiratory: Clear to ausultation sergio. No: Distress, Labored - Abdomen Abdomen: Normal Bowel sounds. No: Tender to palpation - Derm Derm: Other (Chaperoned exam of the left breast reveals an erythematous, edematous and protruding left nipple that deviates to the left. Some erythema extends to the areola but not to the breast itself.) Results - Vitals Vitals: Vital Signs - 24 hr 01/21/21 17:28 Temperature 36.5 C Heart Rate 60 Respiratory 16 Rate Blood Pressure 140/70 H O2 Saturation 99 Oxygen O2 Source Room air PD MEDICAL DECISION MAKING - ED course Complexity details: d/w patient ED course: Well-appearing 40-year-old female who is 2 weeks presents the emergency department for left nipple swelling erythema and significant discomfort. Over the last 4 days the nipple is gotten progressively swollen and protrudes significantly in comparison to the right. Is now erythematous with erythema extending to the areola but not the breast tissue otherwise. I suspect that she has an early infection. I have encouraged her to continue to manually express milk from the left breast but we will start her on Keflex. Recommend warm compress 3 times a day. Advise close follow-up with PCP or OB on Sunday. Emergent return precautions discussed to the ER. Departure - Departure Disposition: 01 Home, Self Care Clinical Impression: Nipple infection associated with Condition: Stable Record reviewed to determine appropriate education?: Yes Prescriptions: cephALEXin [Keflex] 500 mg PO Q6H #28 cap Comments: Shantell it looks like the pain and protrusion of your nipple is most likely an early infection. To treat this I would like you to do a warm compress over the nipple for 10 minutes 3 times a day. I would like you to fill the prescription for the antibiotics which have been sent to the [facility] in [place] and begin taking them tomorrow morning. Your first dose was given tonight in the ER. It is okay to continue to manually express milk from the left nipple. Your baby can continue to breast-feed on the right breast. The antibiotic is typically safe in breast-feeding. Please follow-up with OB or your primary care provider on Sunday to ensure that the symptoms are getting better. Return sooner to the ER if they are not.
== END 2021-01-21 20:06 | disposition home or self-care (01) ==
LOC: ED 17:26
DX: O91.03 Infection of nipple associated with lactation (principal); Z87.891 Personal history of nicotine dependence
CPT/HCPCS: 99282; 99283; A9270

== ENCOUNTER 2021-02-16 13:20 | Outpatient (CLI) | payer OTHER ==
[2021-02-16 14:01] LABS: GTT GLUCOSE,FASTING 86 mg/dL (70-100)
== END 2021-02-16 13:21 | disposition home or self-care (01) ==
LOC: LAB 13:20
PROVIDERS: ATTEND Obstetrics & Gynecology
DX: Z39.1 Encounter for care and examination of lactating mother (principal); O24.419 Gestational diabetes mellitus in pregnancy, unspecified control
CPT/HCPCS: 36415; 82951

== ENCOUNTER 2024-01-21 08:00 | Outpatient (CLI) | payer OTHER ==
[2024-01-21 17:15] LABS: BILIRUBIN,URINE NEGATIVE (NEGATIVE); GLUCOSE, URINE (UA) NEGATIVE (NEGATIVE); KETONES,URINE (UA) TRACE mg/dL (NEGATIVE); LEUKOCYTE ESTERASE, URINE NEGATIVE (NEGATIVE); NITRITE,URINE NEGATIVE (NEGATIVE); OCCULT BLOOD,URINE NEGATIVE (NEGATIVE); PH,URINE 6.5 PH (5.0-7.5); PROTEIN,URINE NEGATIVE (NEGATIVE); UROBILINOGEN,URINE 0.2 (NORMAL) E.U./dL (NORMAL)
[2024-01-21 17:29] LABS: CREATININE,URINE 265.9 mg/dL; PROTEIN/CREATININE RATIO,URINE 0.1 (<=0.2)
[2024-01-21 17:34] LABS: BACTERIA,URINE Rare /HPF (None Seen); CLARITY,URINE CLEAR (CLEAR); RBC,URINE None Seen /HPF (0-5); SQUAMOUS EPITHELIAL CELL,UR MANY Squamous (<= Few); WBC,URINE 0-3 /HPF (0-5)
[2024-01-21 17:39] LABS: MUCUS,URINE Moderate Strands
== END 2024-01-21 23:59 | disposition home or self-care (01) ==
LOC: LAB.WC 08:00
PROVIDERS: ATTEND Obstetrics & Gynecology
DX: Z34.90 Encounter for supervision of normal pregnancy, unspecified, unspecified trimester (principal)
CPT/HCPCS: 81001; 82570; 84156; 87086

== ENCOUNTER 2024-01-24 11:03 | Outpatient (CLI) | payer OTHER ==
[2024-01-24 11:26] LABS: BASOPHILS # (AUTO) 0.1 10^3/uL (0.0-0.1); BASOPHILS % (AUTO) 0.6 %; EOSINOPHILS # (AUTO) 0.1 10^3/uL (0.0-0.7); EOSINOPHILS % (AUTO) 1.4 %; HGB - HEMOGLOBIN 14.2 g/dL (12.0-16.0); LYMPHOCYTES # (AUTO) 2.4 10^3/uL (1.5-3.5); LYMPHOCYTES % (AUTO) 28.2 %; MEAN CORPUSCULAR HEMOGLOBIN 27.8 pg (27.0-31.0); MEAN CORPUSCULAR HGB CONC 31.6 g/dL (32.0-36.0); MEAN CORPUSCULAR VOLUME 88.2 fL (81.0-99.0); MEAN PLATELET VOLUME 11.3 fL (7.9-10.8); MONOCYTES # (AUTO) 0.6 10^3/uL (0.0-1.0); MONOCYTES % (AUTO) 6.8 %; NEUTROPHILS # (AUTO) 5.3 10^3/uL (1.5-6.6); NEUTROPHILS % (AUTO) 62.9 %; PLT - PLATELET COUNT 220 10^3/uL (130-450); WHITE BLOOD COUNT 8.4 x10^3/uL (4.8-10.8)
[2024-01-24 11:43] LABS: ALBUMIN 4.2 g/dL (3.2-5.5); ALBUMIN/GLOBULIN RATIO 1.8 (1.0-2.2); BILIRUBIN,TOTAL 0.4 mg/dL (0.2-1.0); CALCIUM 9.1 mg/dL (8.5-10.3); CREATININE 0.6 mg/dL (0.6-1.3); TOTAL PROTEIN 6.6 g/dL (6.4-8.9)
[2024-01-24 11:45] LABS: CREATININE,URINE 292.7 mg/dL; PROTEIN/CREATININE RATIO,URINE 0.1 (<=0.2)
[2024-01-24 12:12] LABS: ESTIMATED AVERAGE GLUCOSE 103 mg/dL (70-100); HEMOGLOBIN A1c% 5.2 % (4.27-6.07)
[2024-01-24 12:28] LABS: THYROID STIMULATING HORMONE 1.6 uIU/mL (0.34-5.60)
[2024-01-25 01:08] LABS: HIV SCREEN 4TH GENERATION Non Reactive (Non Reactive)
[2024-01-25 03:11] LABS: HBsAG SCREEN Negative (Negative)
[2024-01-25 07:10] LABS: RPR Non Reactive (Non Reactive)
[2024-01-25 09:11] LABS: VARICELLA-ZOSTER AB IGG 218 index (Immune >165)
[2024-01-26 01:12] LABS: HCV AB Non Reactive (Non Reactive)
== END 2024-01-24 11:04 | disposition home or self-care (01) ==
LOC: LAB 11:03
PROVIDERS: ATTEND Obstetrics & Gynecology
DX: Z34.90 Encounter for supervision of normal pregnancy, unspecified, unspecified trimester (principal)
CPT/HCPCS: 36415; 80053; 82570; 83036; 84156; 84436; 84443; 84480; 85025; 86592; 86762; 86787; 86803; 86850; 86900; 86901; 87340; 87389

== ENCOUNTER 2024-02-04 11:31 | Outpatient (CLI) | payer OTHER ==
--- NOTE | 2024-02-04 20:46 | Ultrasound Report ---
PROCEDURE: OB 1st Trimester INDICATIONS: POSITIVE TEST OUTSIDE/PRIOR DATING DATA: Last menstrual period (LMP): 11/26/2023. LMP-based estimated date of delivery (EKTA): 09/01/2024. First dating scan (date and location): 02/04/2024. Estimated date of delivery (EKTA) from first dating scan: 09/04/2024. TECHNIQUE: Real-time scanning was performed of the fetus and maternal pelvic organs, with image documentation. COMPARISON: None. FINDINGS: Intrauterine gestational sac present. Embryo: Single live intrauterine gestation with fetus seen. [place]-rump length measures 2.77 cm. Maia mated gestational age is 9 weeks, 4 days. Heart rate: 171 bpm. Other: No perigestational fluid collection. Measurement variability in dating: +/- 4 weeks by LMP, +/- 7 days by mean sac diameter (use before 6 weeks gestation if crown-rump length not able to be measured), +/- 5 days by crown-rump length (6-12 weeks gestation). Maternal organs: Ovaries appear within normal limits. IMPRESSION: Single live intrauterine gestation with fetus seen. Estimated gestational age based on current study is 9 weeks, 4 days. heart rate is 171 bpm. A yolk sac is not definitively seen on the current s tudy. Reviewed by: Yeyo Fry MD on 02/04/2024 8:45 PM PDT Approved by: Yeyo Fry MD on 02/04/2024 8:45 PM PDT Station ID: [id number]
== END 2024-02-04 11:32 | disposition home or self-care (01) ==
LOC: DI 11:31
PROVIDERS: ATTEND Obstetrics & Gynecology
DX: Z34.91 Encounter for supervision of normal pregnancy, unspecified, first trimester (principal)

== ENCOUNTER 2024-08-25 14:32 | Inpatient (IN) ==
[2024-08-25] MEDS ORDERED: METOCLOPRAMIDE 10 MG TABLET PO PRN (15:05)
[2024-08-25] MEDS ORDERED: miSOPROStoL 200 MCG TABLET BC PRN (15:05)
[2024-08-25] MEDS ORDERED: TRANEXAMIC ACID IN NACL 1,000 MG/100 ML BAG IV PRN (15:05)
[2024-08-25] MEDS ORDERED: OXYTOCIN 10 UNIT/ML VIAL IM PRN (15:05)
[2024-08-25] MEDS ORDERED: METHYLERGONOVINE 0.2 MG/ML VIAL IM PRN (15:05)
[2024-08-25] MEDS ORDERED: CARBOPROST TROMETHAMINE 250 MCG/ML VIAL IM PRN (15:05)
[2024-08-25] MEDS ORDERED: METOCLOPRAMIDE 10 MG/2 ML VIAL IVP PRN ×2 (15:05→18:59)
[2024-08-25] MEDS ORDERED: ONDANSETRON ODT 4 MG TABLET TL PRN (15:05)
[2024-08-25] MEDS ORDERED: hydrALAZINE INJ 20 MG/ML VIAL IVP PRN ×2 (15:05)
[2024-08-25] MEDS ORDERED: NIFEdipine 10 MG CAPSULE PO PRN (15:05)
[2024-08-25] MEDS ORDERED: LABETALOL 20 MG/4 ML SYRINGE IVP PRN ×3 (15:05)
[2024-08-25] MEDS ORDERED: lidocaine 1% 20 ML MDV ID PRN (15:05)
[2024-08-25] MEDS ORDERED: fentaNYL 100 MCG/2 ML VIAL IVP PRN (15:05)
[2024-08-25] MEDS ORDERED: SODIUM CHLORIDE FLUSH 0.9% 10 ML SYRINGE IVP PRN (15:05)
--- OUTSIDE RECORDS SUMMARY | 2024-08-25 15:13 | EXTERNAL MEDICAL SUMMARY RPT | Continuity of Care Document ---
Author Organization [facility] Address [address] [place] [id number] Phone Problems date description facility 2024-05-30 14:30 Hypothyroidism, unspecified [facility] 2024-05-30 14:30 Supervision of high risk , unspecified, unspecified trimester [facility] 2024-05-30 14:30 Encounter for superv ision of normal , unspecified, unspecified trimester [facility] 2024-05-31 00:03 Hypothyroidism, unspecified [facility] 2024-05-31 00:03 Supervision of high risk , unspecified, unspecified trimester [facility] 2024-05-31 00:03 Encounter for superv ision of normal , unspecified, unspecified trimester [facility] 2024-06-02 11:53 Hypothyroidism, unspecified [facility] 2024-06-02 11:53 Supervision of high risk , unspecified, unspecified trimester [facility] 2024-06-04 12:52 Supervision of high risk , unspecified, unspecified trimester [facility] 2024-06-10 00:02 Encounter for immunization [facility] 2024-06-24 11:54 Supervision of high risk , unspecified, unspecified trimester [facility] 2024-06-24 11:54 Body mass index [BMI] 40.0-44.9 , adult [facility] 2024-06-24 13:14 Supervision of high risk , unspecified, unspecified trimester [facility] 2024-06-24 13:14 Body mass index [BMI] 40.0-44.9 , adult [facility] 2024-06-25 15:15 Supervision of high risk , unspecified, unspecified trimester [facility] 2024-06-25 15:15 Body mass index [BMI] 40.0-44.9 , adult [facility] 2024-06-25 15:16 Supervision of high risk , unspecified, unspecified [facility]-25 15:16 Body mass index [BMI] 40.0-44.9 , adult [facility] 2024-07-04 15:02 Supervision of high risk , unspecified, unspecified [facility] 2024-07-04 15:02 Body mass index [BMI] 40.0-44.9 , adult [facility] 2024-07-04 15:04 Supervision of high risk , unspecified, unspecified trimester [facility] 2024-07-04 15:04 Supervision of high risk , unspecified, first trimester [facility] 2024-07-04 15:04 Encounter for superv ision of normal , unspecified, unspecified trimester [facility] 2024-07-04 15:04 Body mass index [BMI] 40.0-44.9 , adult [facility] 2024-07-04 15:04 Personal history of gestational diabetes [facility] 2024-07-04 15:05 Supervision of high risk , unspecified, unspecified trimester [facility] 2024-07-04 15:05 Body mass index [BMI] 40.0-44.9 , adult [facility] 2024-07-04 15:06 Supervision of high risk , unspecified, unspecified trimester [facility] 2024-07-04 15:06 Supervision of high risk , unspecified, first [facility] 2024-07-04 15:06 Encounter for immunization id [facility] 2024-07-04 15:07 Hypothyroidism, unspecified i [facility] 2024-07-04 15:07 Supervision of elder ly multigravida, unspecified trimester [facility] 2024-07-04 15:07 Supervision of high risk , unspecified, unspecified trimester [facility] 2024-07-04 15:07 Encounter for immunization id [facility] 2024-07-04 15:07 Body mass index [BMI] 40.0-44.9 , adult [facility] 2024-07-09 06:40 Supervision of elder ly multigravida, unspecified trimester [facility] 2024-07-09 09:34 Supervision of elder ly multigravida, unspecified trimester [facility] 2024-07-09 09:35 Supervision of elder ly multigravida, unspecified trimester [facility] 2024-07-14 06:58 Supervision of high risk , unspecified, unspecified [facility] 2024-07-14 06:58 Body mass index [BMI] 40.0-44.9 , adult [facility] 2024-07-14 06:59 Supervision of high risk , unspecified, unspecified trimester [facility] 2024-07-14 06:59 Body mass index [BMI] 40.0-44.9 , adult [facility] 2024-07-15 00:02 Supervision of high risk , unspecified, unspecified trimester [facility] 2024-07-15 00:02 Body mass index [BMI] 40.0-44.9 , adult [facility] 2024-07-16 14:18 Supervision of high risk , unspecified, third trimester [facility] 2024-07-21 15:52 Supervision of elder ly multigravida, unspecified trimester [facility] 2024-07-22 00:01 Supervision of elder ly multigravida, unspecified trimester [facility] 2024-07-23 14:25 Supervision of elderly primigra oswald, third trimester [facility] 2024-07-30 00:03 Supervision of elder ly multigravida, unspecified trimester [facility] 2024-07-30 00:03 Body mass index [BMI] 40.0-44.9 , adult [facility] 2024-07-31 15:12 Other specified dise ases and conditions complicating [facility] 2024-08-04 09:48 Encounter for screeni ng for Streptococcus B [facility] 2024-08-04 10:01 Supervision of elder ly multigravida, unspecified trimester [facility] 2024-08-04 10:01 Encounter for screeni ng for Streptococcus B [facility] 2024-08-04 10:01 Body mass index [BMI] 40.0-44.9 , adult [facility] 2024-08-05 00:03 Encounter for screeni ng for Streptococcus B [facility] 2024-08-11 10:26 Supervision of elder ly multigravida, unspecified trimester [facility] 2024-08-11 10:26 Body mass index [BMI] 40.0-44.9 , adult [facility] 2024-08-12 05:18 Supervision of elder ly multigravida, unspecified trimester [facility] 2024-08-12 15:24 Supervision of elder ly multigravida, unspecified trimester [facility] 2024-08-12 15:25 Supervision of elder ly multigravida, unspecified trimester [facility] 2024-08-14 17:15 Supervision of elder ly multigravida, unspecified trimester [facility] 2024-08-15 00:02 Supervision of elder ly multigravida, unspecified trimester [facility] 2024-08-21 12:24 Decreased move ments, unspecified trimester, not applicable or unspecified [facility] 2024-08-21 12:25 Decreased move ments, unspecified trimester, not applicable or unspecified [facility] 2024-08-21 12:37 Decreased move ments, unspecified trimester, not applicable or unspecified [facility] 2024-08-21 12:39 Decreased move ments, unspecified trimester, not applicable or unspecified [facility] 2024-08-22 00:02 Decreased move ments, unspecified trimester, not applicable or unspecified [facility] 2024-08-25 10:07 Decreased move ments, third trimester, not applicable or unspecified [facility] Results/Labs test date facility value unit notes Result panel 1 THYROID STIMULATING HORMONE 2024-05-30 15:38 [facility] 1.80 uiu/ml (missing) MEAN PLATELET VOLUME 2024-05-30 15:38 [facility] 11.1 fl (missing) HGB - HEMOGLOBIN 2024-05-30 15:38 [facility] 11.9 g /dl (missing) RED CELL DISTRIBUTION WIDTH 2024-05-30 15:38 [facility] 13.8 % (missing) GLUCOSE,1H PP 50GM DOSE 2024-05-30 15:38 [facility] 134 mg/dl Social History date description facility
[2024-08-25 15:24] LABS: BASOPHILS % (AUTO) 0.3 %; EOSINOPHILS # (AUTO) 0.1 10^3/uL (0.0-0.7); EOSINOPHILS % (AUTO) 0.8 %; HCT - HEMATOCRIT 37.4 % (37.0-47.0); HGB - HEMOGLOBIN 12.2 g/dL (12.0-16.0); LYMPHOCYTES # (AUTO) 2.1 10^3/uL (1.5-3.5); LYMPHOCYTES % (AUTO) 19.7 %; MEAN CORPUSCULAR HEMOGLOBIN 31.4 pg (27.0-31.0); MEAN CORPUSCULAR HGB CONC 32.6 g/dL (32.0-36.0); MEAN CORPUSCULAR VOLUME 96.4 fL (81.0-99.0); MEAN PLATELET VOLUME 11.8 fL (7.9-10.8); MONOCYTES # (AUTO) 0.7 10^3/uL (0.0-1.0); MONOCYTES % (AUTO) 6.7 %; NEUTROPHILS # (AUTO) 7.7 10^3/uL (1.5-6.6); NEUTROPHILS % (AUTO) 71.2 %; PLT - PLATELET COUNT 221 10^3/uL (130-450); RED BLOOD COUNT 3.88 10^6/uL (4.20-5.40); RED CELL DISTRIBUTION WIDTH 13.2 % (12.0-15.0); WHITE BLOOD COUNT 10.8 x10^3/uL (4.8-10.8)
[2024-08-25 15:34] LABS: ALBUMIN 3.4 g/dL (3.2-5.5); ALBUMIN/GLOBULIN RATIO 1.2 (1.0-2.2); BILIRUBIN,TOTAL 0.3 mg/dL (0.2-1.0); CREATININE 0.8 mg/dL (0.6-1.3); POTASSIUM 3.8 mmol/L (3.5-4.5); TOTAL PROTEIN 6.3 g/dL (6.4-8.9)
[2024-08-25] MEDS: miSOPROStoL 100 MCG TABLET VG SCH ×2 (15:47→20:51)
--- NOTE | 2024-08-25 16:25 | HISTORY & PHYSICAL EXAMINATION ---
Admit History Visit Reason Visit Reason: Other (labor induction) : 3 Parity: 2 Care: positive [facility] Risk/History: positive Labor induction and Other (AMA, BMI 45, lga baby) Smoking Status: Former smoker Mother's Labs Mother's Blood Type: positive O Mother's RH: positive Positive GBS: positive Group B Step Negative Other Maternal History Other Maternal History: Here for labor induction for obesity, AMA at 43. GBS neg. looks huge and baby large on last US. care: Expected Delivery Route/Plan , induction 08/25 8 am Specific Issues/Plans LMP: 11/26/23 EKTA by LMP: 09/01/24 US:02/04/2024 @ 9+4 (09/04/24)c/w LMP Final EKTA: 09/01/2024 Problems:AMA, hx GDM, BMI>40 01/23- GLUCOSE 103, A1C- 5.2% AMA: -Start aspirin 81 mg at 12 weeks -NIPT ordered History of GDM -On metformin first . No medication second . -Early 1-hour GTT ordered. Did A1C which was normal. 1hr 134 on 05/30. Obesity, BMI 43 [ x] needs weekly NSTs at 34wks for BMI/AMA, scheduled starting 35 weeks. [X ] growth US ordered to be done at [facility] ~ 07/11. 79%ile [x ] echo ordered on 06/24 for incomplete heart views x 3 - normal 3/5 FOB Joaquin. older daughter Berny and younger Kaitlyn (8.5#). Carrying baby boy Binh hopes for one more. Pre- Weight:251.0 BMI: 43.24 Blood type: o+ Antibody: NEGATIVE CBC: H/H 14.2/45.0 PLT 220 RUB:IMMUNE VZV:IMMUNE HBsAg:NEG HepC:NR RPR/AB-EIA:NR HIV:NR PAP:11/30/22 - normal GC/CT:NEGATIVE HSV:denies in self and partner Genetic testing:NIPT neg AFP neg Covid:declined Flu:04/15 FAS:04/21 Placenta:posterior w/o previa Cord:3VC CORTEZ:13.8cm EFW:446g 82% Nose and lips and outflow tracts not seen. Four-chamber view not well seen. F/U done as above EARLY GTT: 17wks 121 50gm OGCT: 134 TDAP: 06/09/24 mls Breast Pump: given 3rd trimester CBC:11.9/35.7/197 RPR: Nonreactive GBS: Negative Delivery plan: induction 39 weeks. Contraception: declines, deploying in Jan. last us done 08/15/24 for AMA, obesity. FINDINGS: General: A single living intrauterine gestation is present. Presentation: Vertex Placenta: Placental position is posterior, without previa. Amniotic fluid index: 15.0 cm, 59.8% and is within normal limits for gestational age. heart rate: 137 beats per minute. Maternal cervical canal: Not well seen.. biometrics: Biparietal diameter: 9.32 cm, 37 weeks, 6 days, 80.2% Head circumference: 35.22 cm, 41 weeks, 1 day, 95.3% Abdominal circumference: 34.53 cm, 38 weeks, 3 days, 87.7% Femur length: 7.56 cm, 38 weeks, 5 days, 80.0% Estimated gestational age from initial scan: 37 weeks, 3 days. Composite gestational age from present scan: 39 weeks, 0 day Estimated weight and percentile: 3574.3 g, 87.5% Measurement variability in biometric dating: +/- 10 days from 12-20 weeks gestation, +/- 2 weeks from 20-30 weeks gestation, +/- 3 weeks at 30 weeks gestation or more. Other: Not applicable. IMPRESSION: 1. Single live intrauterine gestation with fetus in vertex presentation. heart rate is 137 bpm. Normal CORTEZ at 15.0 cm which is at 59.8%. 2. Estimated weight is at 87.5%. Reviewed by: Yeyo Fry MD on 08/15/2024 4:05 PM PDT HPI Diagnosis/Indication for NST: Other (AMA) Current : Vital Signs Temperature 37.1 C 08/25/24 15:57 Pulse Rate 84 08/25/24 15:57 Respiratory Rate 18 08/25/24 15:57 Blood Pressure 131/56 H 08/25/24 15:57 NST Procedure NST Procedure: NST reviewed in real time and reactive. baseline 140 Results and Plan Plan: continue with plan for labor induction. Meds/Allgy Home Medications Ambulatory Orders Medication Instructions Recorded Confirmed vit no.95-ferrous 1 ea PO DAILY 05/06/17 08/25/24 fumarate 28 mg-folic acid 800 mcg tablet ( Multivitamins) aspirin 81 mg tablet,delayed 81 mg PO QDAY 03/06/24 08/25/24 release (Adult Aspirin Regimen) famotidine 20 mg tablet (Pepcid) 20 mg PO QDAY 07/22/24 08/25/24 calcium carbonate 500 mg PO QID PRN heartburn 08/25/24 08/25/24 Allergies Allergies Allergy/AdvReac Type Severity Reaction Status Date / Time dichloralphenazone (From Allergy dilated Verified 08/04/24 09:18 Midrin) pupils isometheptene (From Midrin) Allergy Unknown Verified 08/04/24 09:18 PFS Active Problems All Active Problems (Updated 08/25/24 @ 20:39 by Terrie Guevara MD) Encounter for induction of labor (Acute) Allergy to bee sting (Acute) Supervision of high risk , antepartum (Acute) AMA (advanced maternal age) multigravida 35+ (Acute) BMI 40.0-44.9, adult (Acute) Medical History Medical History (Updated 08/25/24 @ 20:39 by Terrie Guevara MD) Bimalleolar ankle fracture Vaginal delivery 01/05/21, 10/26/22 term vag Gestational diabetes (10/28/20) depression (01/27/21) Hypothyroidism (06/16/20) Abscess of the breast and nipple (02/12/19) Skin cancer Surgical History Surgical History (Updated 04/15/24 @ 22:31 by Terrie Guevara MD) Normal colonoscopy many years ago. done for rectal bleeding. [place] teeth extracted Family History Family History (Updated 04/15/24 @ 22:32 by Terrie Guevara MD) Father Diabetes Grandfather Diabetes Grandmother Diabetes High blood pressure Grandfather Diabetes High blood pressure Grandmother Diabetes Mother Arthritis Sister Asthma Aunt Thyroid cancer Grandfather Lung cancer Social History Social History (Updated 04/15/24 @ 22:34 by Terrie Guevara MD) Smoking Status: Former smoker If you are a former smoker, when did you quit? (Date/Year): 2017 Number of Years Smoked: 5 How many cigarettes a day do you smoke? (20 cigarettes=1 Pk): 20 Do you dip or chew tobacco?: No Patient requests smoking cessation consult: No Initiate information on smoking cessation: No Living Condition: With family Relationship: Spouse Living Situation Details: Joaquin and 2 daughters. Level: Independent ETOH Use: None Substance Use: denies use Are you sexually active?: Yes POLST Patient has POLST: No Review of Systems Constitutional Reports: Fatigue (normal for ); Denies: Fever Cardiovascular Denies: Irregular heart rate, chest pain or shortness of breath with exertion Respiratory Denies: Shortness of breath Gastrointestinal Reports: Heartburn Neurological Denies: Headache Endocrine Reports: Fatigue (normal for ) Physical Abdominal Exam Vital Signs: Temp Pulse Resp BP 37.1 C 84 18 131/56 H 08/25/24 15:57 08/25/24 15:57 08/25/24 15:57 08/25/24 15:57 Contraction Frequency (min/apart): irreg about q 3-5 min Contraction Intensity: positive Mild to moderate Uterine Resting Tone: positive Soft Monitoring Heart Rate Baseline: 145 Strip Review: positive Category I Presentation Presentation: positive Vertex Vaginal Exam Membranes: positive Membranes intact (check done at 15:10) Dilation (in cm): 3.5 Effacement (%): 70 Station: positive Ballotable Cervical Position: positive Midposition Speculum Exam Speculum Exam Performed: positive No Other Notes Labor Progress Note/Additional Text: US done to confirm vertex presentation. Plan for Labor Plan For Labor I expect patient to be DC'd or transferred within 96 hours.: Yes Conclusion/Plan Problem List (1) Encounter for induction of labor: Plan: For AMA, obesity. LGA baby at 89%ile. Consent reviewed and signed. Miso to start. Lab Results Lab results reviewed: Yes 08/25/24 15:00 08/25/24 15:00 Diagnostic Imaging Results Diagnostic Imaging Results: positive Final report reviewed
[2024-08-25 17:23] LABS: ESTIMATED AVERAGE GLUCOSE 108 mg/dL (70-100); HEMOGLOBIN A1c% 5.4 % (4.27-6.07)
[2024-08-25] MEDS: LACTATED RINGERS 1,000 ML IV PRN ×2 (18:15→23:16)
[2024-08-25] MEDS ORDERED: ROPIVACAINE 0.2% 200 MG/100 ML BAG EP ONE (18:23)
[2024-08-25] MEDS ORDERED: LACTATED RINGERS 500 ML IV ONE (18:59)
[2024-08-25] MEDS ORDERED: diphenhydrAMINE INJ 50 MG/ML VIAL IVP PRN (18:59)
[2024-08-25] MEDS ORDERED: ONDANSETRON 4 MG/2 ML VIAL IVP PRN (18:59)
[2024-08-25] MEDS ORDERED: ePHEDrine 50 MG/ML VIAL IVP PRN (18:59)
[2024-08-25] MEDS ORDERED: ROPIVACAINE 0.2% 200 MG/100 ML BAG EP PRN (18:59)
[2024-08-25] MEDS ORDERED: NALBUPHINE 10 MG/ML AMP IVP PRN (18:59)
[2024-08-25] MEDS ORDERED: NALOXONE 0.4 MG/ML VIAL IVP PRN (18:59)
--- NOTE | 2024-08-25 19:03 | ANESTHESIA PROCEDURE NOTE ---
Pre-Anesthesia VS, & Labs Diagnosis Surgical Diagnosis:: term labor pain Procedure Procedure: epidural for Vitals Vital Signs: Temp Pulse Resp BP 37.1 C 84 18 131/56 H 08/25/24 15:57 08/25/24 15:57 08/25/24 15:57 08/25/24 15:57 NPO Last Fluid Intake: t/o day Last Food Intake: lunch Is Patient ?: Yes Lab Results Current Lab Results: Laboratory Tests 08/25/24 15:00: WBC 10.8, RBC 3.88 L, Hgb 12.2, Hct 37.4, MCV 96.4, MCH 31.4 H, MCHC 32.6, RDW 13.2, Plt Count 221, MPV 11.8 H, Neut # (Auto) 7.7 H, Lymph # (Auto) 2.1, [place] # (Auto) 0.7, Eos # (Auto) 0.1, Baso # (Auto) 0.0, Absolute Nucleated RBC 0.00, Nucleated RBC % 0.0, Sodium 136, Potassium 3.8, Chloride 104, Carbon Dioxide 24, Anion Gap 8.0, BUN 16, Creatinine 0.8, Estimated GFR (MDRD) 79 L, Glucose 166 H, Estimat Average Glucose 108 H, Hemoglobin A1c % 5.4, Calcium 10.0, Total Bilirubin 0.3, AST 11, ALT 14, Alkaline Phosphatase 145 H, T otal Protein 6.3 L, Albumin 3.4, Globulin 2.9, Albumin/Globulin Ratio 1.2, Blood Type O POSITIVE, Antibody Screen NEGATIVE Lab results reviewed: Yes 08/25/24 15:00 08/25/24 15:00 Meds/Allgy Home Medications Ambulatory Orders Medication Instructions Recorded Confirmed vit no.95-ferrous 1 ea PO DAILY 05/06/17 08/25/24 fumarate 28 mg-folic acid 800 mcg tablet ( Multivitamins) aspirin 81 mg tablet,delayed 81 mg PO QDAY 03/06/24 08/25/24 release (Adult Aspirin Regimen) famotidine 20 mg tablet (Pepcid) 20 mg PO QDAY 07/22/24 08/25/24 calcium carbonate 500 mg PO QID PRN heartburn 08/25/24 08/25/24 Allergies Allergies Allergy/AdvReac Type Severity Reaction Status Date / Time dichloralphenazone (From Allergy dilated Verified 08/04/24 09:18 Midrin) pupils isometheptene (From Midrin) Allergy Unknown Verified 08/04/24 09:18 PFSH Active Problems All Active Problems (Updated 08/21/24 @ 11:58 by Misti Wright, RN) Decreased movement (Acute) Allergy to bee sting (Acute) Supervision of high risk , antepartum (Acute) AMA (advanced maternal age) multigravida 35+ (Acute) BMI 40.0-44.9, adult (Acute) Medical History Medical History (Updated 08/21/24 @ 11:58 by Misti Wright, RN) Bimalleolar ankle fracture Vaginal delivery 01/05/21, 10/26/22 term vag Gestational diabetes (10/28/20) depression (01/27/21) Hypothyroidism (06/16/20) Abscess of the breast and nipple (02/12/19) Skin cancer Surgical History Surgical History (Updated 04/15/24 @ 22:31 by Terrie Guevara MD) Normal colonoscopy many years ago. done for rectal bleeding. [place] teeth extracted Family History Family History (Updated 04/15/24 @ 22:32 by Terrie Guevara MD) Father Diabetes Grandfather Diabetes Grandmother Diabetes High blood pressure Grandfather Diabetes High blood pressure Grandmother Diabetes Mother Arthritis Sister Asthma Aunt Thyroid cancer Grandfather Lung cancer Social History Social History (Updated 04/15/24 @ 22:34 by Terrie Guevara MD) Smoking Status: Former smoker If you are a former smoker, when did you quit? (Date/Year): 2017 Number of Years Smoked: 5 How many cigarettes a day do you smoke? (20 cigarettes=1 Pk): 20 Do you dip or chew tobacco?: No Patient requests smoking cessation consult: No Initiate information on smoking cessation: No Living Condition: With family Relationship: Spouse Living Situation Details: Joaquin and 2 daughters. Level: Independent ETOH Use: None Substance Use: denies use Are you sexually active?: Yes POLST Patient has POLST: No Anesthesia Exam (Expanded) Exam General: Alert, Oriented x3, Cooperative and Mild distress Dental: WNL Mouth Openin Fingerbreadth Neck Mobility: Normal Mallampati classification: II Thyromental Distance: 4-6 cm Respiratory: No respiratory distress Cardiovascular: Regular rate Neurological: Normal speech Mental/Cognitive Status: Alert/Oriented X3 and Normal for patient Cognitive Status: Within normal limits Exam Exam Vital Signs: Vital Signs x48h Temp Pulse Resp BP 08/25/24 15:57 37.1 C 84 18 131/56 H Plan Plan Anesthesia Type: Epidural Consent for Procedure(s) Verified and Reviewed: Yes Code Status: Attempt Resuscitation ASA Classification ASA classification: 2-Mild systemic disease Is this case an emergency?: No
[2024-08-25] MEDS: ONDANSETRON 4 MG/2 ML VIAL IVP PRN (19:47)
[2024-08-25] MEDS ORDERED: CALCIUM CARBONATE CHEW 500 MG TABLET PO PRN (20:27)
--- NOTE | 2024-08-25 20:46 | PROVIDER PROGRESS NOTE ---
Labor Progress Note Uterine Monitoring Uterine Monitoring Mode: positive External toco Contraction Frequency (min/apart): 1-4 min Contraction Intensity: positive Mild to moderate Uterine Resting Tone: positive Soft Monitoring Monitor Mode: positive External ultrasound Heart Rate Baseline: 140 Heart Rate Variability: positive Moderate (6-25 bmp) Accelerations: positive Present, 15x15 Decelerations: positive None Strip Review: positive Category I Vaginal Exam Dilation (in cm): 4 Effacement (%): 70 Station: -3 Cervical Position: Anterior (but way to left.) Labor Progress Note Labor Progress Note/Additional Text: patient was very uncomfortable after first miso and just got epidural. bp went up some with epidural and she had some vomiting. Zofran given. cervical check and cervix is unusual position off to left. discussed AROM and recommended. She and Joaquin agree. Performed with clear fluid. if not cruz more in next 30 min start pitocin. hope for in 4 hrs or so.
[2024-08-25] MEDS ORDERED: OXYTOCIN/SODIUM CHLORIDE 500 ML IV SCH (21:00)
[2024-08-25] MEDS: FAMOTIDINE 20 MG/2 ML VIAL IVP SCH (21:32)
[2024-08-26] MEDS ORDERED: LABETALOL 20 MG/4 ML SYRINGE IVP PRN ×2 (01:53)
[2024-08-26] MEDS ORDERED: LABETALOL 5 MG/1 ML 20 ML MDV IVP PRN (01:53)
[2024-08-26] MEDS ORDERED: NALOXONE 0.4 MG/ML VIAL IVP PRN (01:53)
[2024-08-26] MEDS ORDERED: OXYTOCIN/SODIUM CHLORIDE 500 ML IV PRN (01:53)
[2024-08-26] MEDS ORDERED: SIMETHICONE CHEW 80 MG TABLET PO PRN (01:53)
[2024-08-26] MEDS ORDERED: hydrALAZINE INJ 20 MG/ML VIAL IVP PRN ×2 (01:53)
[2024-08-26] MEDS ORDERED: NIFEdipine 10 MG CAPSULE PO PRN (01:53)
--- NOTE | 2024-08-26 02:00 | DELIVERY NOTE ---
Delivery Note Labor Labor: positive Augmented by ARM Delivery Method Delivery Method: positive Spontaneous vaginal delivery Cervical Ripening Method Cervical Ripening Method: positive Misoprostil Presentation Presentation: positive Vertex and OA - occiput anterior Amniotic Fluid Description Amniotic Fluid Description: positive Clear Episiotomy Type Episiotomy Type: positive None Laceration Laceration: positive 2nd degree Suture Suture Type: positive Vicryl Suture Size: positive 3-0 Delivery Outcome Delivery Date: 08/26/24 Delivery Outcome: positive Livebirth [place] : positive Placed in direct skin contact with mother, Stimulated and [place] used sex: positive Male (Binh) Cord Cord: positive 3 vessels Placenta Placenta: positive Intact and Spontaneous Estimated Blood Loss Estimated Blood Loss (in cc): 200 Post Delivery Events Post Delivery Events: positive No post delivery events Delivery Comments (Free Text/Narrative) Delivery Comments (Free Text/Narrative): Admitted for induction as 43 yo. BMI 45. 3 cm on admit. miso x 1 given and lots of contractions enough that she wanted epidural. at 4 hours AROM done. After that she did not need any other medications. progressed to complete and then pushed for about 15 minutes. Baby delivered OA. Put up on mom's belly. Waited about 2 min to clamp cord. Pitocin infused. Placenta delivered spontaneously. Uterus contracted well. 2 small skin tags removed per her request. 2nd degree perineal laceration repaired with 3-0 Vicryl Rapide suture. no complications. Apgars were 8/9.
[2024-08-26] MEDS: OXYTOCIN/SODIUM CHLORIDE 500 ML IV PRN (02:26)
[2024-08-26] MEDS: IBUPROFEN 600 MG TABLET PO PRN (03:57)
[2024-08-26] MEDS: ACETAMINOPHEN 500 MG TABLET PO PRN (05:08)
--- NOTE | 2024-08-26 11:22 | PHARMACY PROGRESS NOTE ---
Best Possible Medication History Admit Date and Time: 08/25/24 [id number] Home Medications Medication Instructions Recorded Confirmed Type vit no.95-ferrous 1 ea PO DAILY 05/06/17 08/25/24 History fumarate 28 mg-folic acid 800 mcg tablet ( Multivitamins) aspirin 81 mg tablet,delayed 81 mg PO QDAY 03/06/24 08/25/24 History release (Adult Aspirin Regimen) famotidine 20 mg tablet (Pepcid) 20 mg PO QDAY 07/22/24 08/25/24 History acetaminophen 500 mg tablet 1,000 mg PO ONCE PRN headache 08/26/24 08/26/24 History (Acetaminophen Extra Strength) Processed by: Pharmacy (Medication reconciliation completed by Child Protective Services SpecialistAmisha) Medications reviewed in ED?: No Medication History completed: Yes Patient Interview: Completed Secondary Source(s): Insurance records [facility] Statement: As the person ultimately responsible for medication therapy, providers are able to order a medication from an existing home medication list in [facility] via the "Reconcile Routine" prior to Confirmation of that medication by program support specialist. Such practice is discouraged except when the physician, in their clinical judgment, deems that a medical need exists for a medication without regard to previous use.
[2024-08-26] MEDS: FAMOTIDINE 20 MG TABLET PO SCH (11:59)
[2024-08-26] MEDS: DOCUSATE SODIUM 100 MG CAPSULE PO SCH (11:59)
--- NOTE | 2024-08-26 13:59 | PROVIDER PROGRESS NOTE ---
Subjective Prog Note Date Prog Note Date: 08/26/24 Prog Note Time: 13:54 Subjective Subjective: Shantell reports overall feeling well. She is havin some cramping and reports her bottom is sore from stitches, but overall feels that tylenol/motrin are working sufficiently. She has ambulated around the room and urinating without difficulty. Reports passing a clot earlier today but bleeding has otherwise seemed appropriate. She is . Current Medications Current Medications Current Medications: Current Medications Generic Name Dose Route Start Last Admin Trade Name Basilioq PRN Reason Stop Dose Admin Acetaminophen 1,000 mg 08/26/24 01:53 08/26/24 12:54 Acetaminophen 500 Mg Tablet PO 1,000 mg Q8HR PRN Administration Mild Pain or Fever>38C(100.4F) Calcium Carbonate/Glycine 500 mg 08/25/24 20:27 Calcium Carbonate Chew 500 Mg Tablet PO Q4H PRN heartburn Docusate Sodium 100 mg 08/26/24 09:00 08/26/24 11:59 Docusate Sodium 100 Mg Capsule PO 100 mg BID YANCI Administration Famotidine 20 mg 08/26/24 12:00 08/26/24 11:59 Famotidine 20 Mg Tablet PO 20 mg BID YANCI Administration Hydralazine HCl 5 - 20 mg 08/25/24 15:05 Hydralazine Inj 20 Mg/Ml Vial IVP Q20M PRN SBP >160 or DBP >110 Protocol Hydralazine HCl 10 mg 08/25/24 15:05 Hydralazine Inj 20 Mg/Ml Vial IVP 08/30/24 15:05 .ONCE PRN Step 9 of Labetalol protocol Protocol Hydralazine HCl 10 mg 08/26/24 01:53 Hydralazine Inj 20 Mg/Ml Vial IVP .ONCE PRN SBP> or= 160 OR DBP> or= 110 Protocol Hydralazine HCl 5 - 10 mg 08/26/24 01:53 Hydralazine Inj 20 Mg/Ml Vial IVP Q20M PRN SBP >=160 and/or DBP >=110 Protocol Oxytocin/Sodium Chloride 500 mls @ 999 mls/hr 08/25/24 15:05 08/26/24 08:00 Pitocin/Sodium Chloride IV 08/30/24 15:05 Infused PRN PRN Titration POST- HEMORR PREVENTION Protocol 999 MILLIUNIT/MIN Tranexamic Acid 1,000 mg in 100 mls @ 600 mls/hr 08/25/24 15:05 Tranexamic 1,000 Mg/100ml-Nacl IV 08/30/24 15:05 .ONCE PRN EBL >1200mL and within 3hr Ibuprofen 600 mg 08/26/24 01:53 08/26/24 09:42 Ibuprofen 600 Mg Tablet PO 600 mg Q6HR PRN Administration Moderate Pain (Level 4-6) Labetalol HCl 20 - 80 mg 08/25/24 15:05 Labetalol 20 Mg/4 Ml Syringe IVP Q10M PRN SBP >160 or DBP >110 Protocol Labetalol HCl 20 mg 08/25/24 15:05 Labetalol 20 Mg/4 Ml Syringe IVP 08/30/24 15:05 .ONCE PRN Step 9 of nifedipine protocol Protocol Labetalol HCl 40 mg 08/25/24 15:05 Labetalol 20 Mg/4 Ml Syringe IVP 08/30/24 15:05 .ONCE PRN Step 9 of hydrALAZine protocol Protocol Labetalol HCl 20 - 80 mg 08/26/24 01:53 Labetalol 5 Mg/1 Ml 20 Ml Mdv IVP Q10M PRN SBP> or= 160 OR DBP> or= 110 Protocol Labetalol HCl 20 - 40 mg 08/26/24 01:53 Labetalol 20 Mg/4 Ml Syringe IVP Q10M PRN SBP> or= 160 OR DBP> or= 110 Protocol Labetalol HCl 20 mg 08/26/24 01:53 Labetalol 20 Mg/4 Ml Syringe IVP .ONCE PRN SBP >=160 and/or DBP >=110 Protocol Metoclopramide HCl 10 mg 08/25/24 15:05 Metoclopramide 10 Mg Tablet PO Q6H PRN Nausea / Vomiting Nifedipine 10 - 20 mg 08/25/24 15:05 Nifedipine 10 Mg Capsule PO Q20M PRN SBP >160 or DBP >110 Protocol Nifedipine 10 - 20 mg 08/26/24 01:53 Nifedipine 10 Mg Capsule PO Q20M PRN SBP >=160 and/or DBP >=110 Protocol Ondansetron HCl 4 mg 08/25/24 15:05 Ondansetron Odt 4 Mg Tablet TL Q4HR PRN Nausea / Vomiting Oxytocin 10 unit 08/25/24 15:05 Oxytocin 10 Unit/Ml Vial IM 08/30/24 15:05 .ONCE PRN Step one: If no IV access Simethicone 80 mg 08/26/24 01:53 Simethicone Chew 80 Mg Tablet PO TID PRN Gas Sodium Chloride 10 ml 08/25/24 15:05 Sodium Chloride Flush 0.9% 10 Ml Syringe IVP PRN PRN NEEDED PER PROVIDER ORDERS Objective Vital Signs/Intake & Output Reviewed Vital Signs: Yes Vital Signs: Vital Signs x48h Temp Pulse Resp BP Pulse Ox 08/26/24 09:06 98.1 F 65 18 119/50 L 97 Intake & Output: Intake & Output 08/23/24 08/24/24 08/25/24 08/26/24 23:59 23:59 23:59 23:59 Intake Total 500 / 500 500 / 500 Output Total 400 / 400 1050 / 1050 Balance 100 / 100 -550 / -550 Weight (kg) 264 lb 3.937 oz Objective Comments/Other: Gen: NAD, sitting up in bed baby Chest: non labored respirations Abd: abdomen mildly TTP, difficult to appreciate location of fundus. Ext: trace LE edema, no evidence of DVT Lab Results 08/25/24 15:00 08/25/24 15:00 Other Labs: Lab Results x24hrs 08/25/24 08/25/24 Range/Units 20:45 15:00 WBC 10.8 (4.8-10.8) x10^3/uL RBC 3.88 L (4.20-5.40) 10^6/uL Hgb 12.2 (12.0-16.0) g/dL Hct 37.4 (37.0-47.0) % MCV 96.4 (81.0-99.0) fL MCH 31.4 H (27.0-31.0) pg MCHC 32.6 (32.0-36.0) g/dL RDW 13.2 (12.0-15.0) % Plt Count 221 (130-450) 10^3/uL MPV 11.8 H (7.9-10.8) fL Neut # (Auto) 7.7 H (1.5-6.6) 10^3/uL Lymph # (Auto) 2.1 (1.5-3.5) 10^3/uL [place] # (Auto) 0.7 (0.0-1.0) 10^3/uL Eos # (Auto) 0.1 (0.0-0.7) 10^3/uL Baso # (Auto) 0.0 (0.0-0.1) 10^3/uL Absolute Nucleated RBC 0.00 x10^3/uL Nucleated RBC % 0.0 /100WBC Sodium 136 (135-145) mmol/L Potassium 3.8 (3.5-4.5) mmol/L Chloride 104 (101-111) mmol/L Carbon Dioxide 24 (21-32) mmol/L Anion Gap 8.0 (6-13) BUN 16 (6-20) mg/dL Creatinine 0.8 (0.6-1.3) mg/dL Estimated GFR (MDRD) 79 L (>89) Glucose 166 H (74-104) mg/dL POC Whole Bld Glucose 106 (70-100) mg/dL Estimat Average Glucose 108 H (70-100) mg/dL Hemoglobin A1c % 5.4 (4.27-6.07) % Calcium 10.0 (8.5-10.3) mg/dL Total Bilirubin 0.3 (0.2-1.0) mg/dL AST 11 (10-42) IU/L ALT 14 (10-60) IU/L Alkaline Phosphatase 145 H (42-121) IU/L Total Protein 6.3 L (6.4-8.9) g/dL Albumin 3.4 (3.2-5.5) g/dL Globulin 2.9 (2.1-4.2) g/dL Albumin/Globulin Ratio 1.2 (1.0-2.2) Blood Type O POSITIVE Antibody Screen NEGATIVE Assessment/Plan Problem List (1) care and examination of lactating mother: Impression: - Elevated BPs noted on review of VS during labor. CBC, CMP normal on admission. Will continue to monitor. - Continue routine care. Anticipate discharge home tomorrow. (2) BMI 45.0-49.9, adult:
[2024-08-26] MEDS ORDERED: oxyCODONE 5 MG TABLET PO PRN (20:23)
[2024-08-26] MEDS: LIDOCAINE JELLY 2% 6 ML JEL.PF.APP TOP PRN (21:03)
[2024-08-26] MEDS: HYDROCORTISONE 1% CREAM 28 GM TUBE TOP PRN (21:04)
[2024-08-27 08:54] VITALS: BP 129/52; TEMP 98.2; O2SAT 98
--- NOTE | 2024-08-27 10:11 | Discharge Summary ---
Discharge Summary Admit Date: 08/25/24 Discharge Date: 08/27/24 HPI History of Present Illness: Admission Diagnosis: - SIUP at 39wk - Obesity in - AMA Discharge Diagnosis: - Same, delivered - Elevated blood pressures Procedures: with repair of 2nd degree perineal laceration and removal of 1 small skin tags Hospital Course: Shantell is a 43 yo who presented at 39wk for IOL for AMA. She received misoprostol followed by [facility]. She had an uncomplicated with EBL of 200cc. During labor course, did have some mildly elevated blood pressures. One mildly elevated blood pressure . course otherwise uncomplicated. Condition on Discharge: SUBJECTIVE: day 1 She feels well. Pain is well controlled with current medications. The baby is doing well. Baby is feeding via . She is ambulating well, tolerating normal diet, urinating without difficulty. Lochia is reported as light. She declines contraception. OBJECTIVE: Vital signs reviewed GENERAL: NAD CHEST: non labored respirations ABD: soft, non tender, unable to feel fundus secondary to habitus. EXT: no lower extremity edema; No evidence of DVT LAB & IMAGING STUDIES: See below PLAN: Plan for discharge home with follow up in clinic at 1 wk . Currently scheduled for 09/01. Reviewed home care instructions and medications. Patient counseled regarding signs and symptoms of infection, excessive bleeding, vaginal rest and activity restrictions. Preeclampsia precautions were reviewed. Discussed that additional support is available in our clinic if needed. ALLERGIES Allergies Allergy/AdvReac Type Severity Reaction Status Date / Time dichloralphenazone (From Allergy dilated Verified 08/04/24 09:18 Midrin) pupils isometheptene (From Midrin) Allergy Unknown Verified 08/04/24 09:18 MEDICATIONS Ambulatory Orders Medication Instructions Recorded Confirmed vit no.95-ferrous 1 ea PO DAILY 05/06/17 08/25/24 fumarate 28 mg-folic acid 800 mcg tablet ( Multivitamins) famotidine 20 mg tablet (Pepcid) 20 mg PO QDAY 07/22/24 08/25/24 acetaminophen 500 mg tablet 1,000 mg PO ONCE PRN headache 08/26/24 08/26/24 (Acetaminophen Extra Strength) PHYSICAL EXAM AT DISCHARGE Vital Signs: Vital Signs x48h Temp Pulse Resp BP Pulse Ox 08/27/24 08:53 98.2 F 71 16 129/52 L 98 08/27/24 05:21 98.1 F 65 16 122/57 L LABS 08/25/24 15:00 08/25/24 15:00 Discharge Plan Discharge Patient Disposition: Home, Self Care Prescriptions: Continued PNV cmb#95-ferrous fumarate-FA [ Multivitamins] 1 EACH tablet 1 ea PO DAILY acetaminophen [Acetaminophen Extra Strength] 500 mg tablet 1,000 mg PO ONCE PRN (Reason: headache) famotidine [Pepcid] 20 mg tablet 20 mg PO QDAY Discontinued aspirin [Adult Aspirin Regimen] 81 mg tablet,delayed release (DR/EC) 81 mg PO QDAY Print Language: Sami Patient Instructions: Vaginal After, Childbirth Breast Care, Depression , Change Expect Parents
--- NOTE | 2024-08-27 12:37 | Labor Flowsheet ---
Labor Flowsheet Datetime Report Generated by CPN: 08/27/2024 12:36 Datetime: 08/27/2024 08:54 VITAL SIGNS NBP Sys/Jeannie/Mean (mmHg): 129 : 52 : 71 Pulse: 67 LaborFlag: Labor Datetime: 08/26/2024 02:11 Membranes Ruptured Date/Time: 08/25/2024 19:50 MEDICATIONS Cervical Ripening Agents: Cytotec @ Datetime: 08/26/2024 02:10 Communication Comments: Updated Guevara about BPs elevated even more after delivery of 150's/60's. No new orders at this time. Will continue to monitor and make MD aware if severe Datetime: 08/26/2024 01:36 Comments: pitocin bolus Datetime: 08/26/2024 01:00 UTERINE ACTIVITY Monitor Mode: External Frequency (min): 1-3 Quality: Strong Duration (sec): 50-90 Pattern: Normal: <= 5 Contractions in 10 Minutes Resting Tone (Palpate): Relaxed FHR Baseline Rate : 130 Variability: Moderate 6-25 bpm Accelerations: 15X15 Decelerations: Early; Variable Datetime: 08/26/2024 00:30 ASSESSMENT A Monitor Mode: Telemetry Datetime: 08/26/2024 00:28 COMMUNICATION Communication: Call/Page Placed to Provider Provider Notified (Name): Dr. Guevara Notification Reason: Labor Status; Uterine Activity Datetime: 08/26/2024 00:23 Cervix, Consistency: Soft Vaginal Exam Comments: anterior lip Datetime: 08/26/2024 00:21 PATIENT CARE Patient Position/Activity: Low Fowlers Datetime: 08/26/2024 00:00 Category: Category I Datetime: 08/25/2024 23:30 Respirations: 18 SpO2 (%): 99 Temperature (C): 36.9 Datetime: 08/25/2024 23:01 VAGINAL EXAM Dilatation (cm): 7.0 Effacement (%): 90 Station: -1 Exam by: Siria RN Datetime: 08/25/2024 21:59 Patient Care Comments: pt vomiting Datetime: 08/25/2024 21:30 Temperature Route: Oral Datetime: 08/25/2024 19:50 Membrane Status: Ruptured Membranes Rupture Method: Artificial Amniotic Fluid Color: Clear Amniotic Fluid Amount: Small Amniotic Fluid Odor: Normal Datetime: 08/25/2024 19:00 PAIN Pain Scale: 0 Pain Presence: None/Denies Datetime: 08/25/2024 18:46 Epidural Procedure Other: Pump Started Datetime: 08/25/2024 18:40 ANESTHESIA Epidural Procedure: Loading Dose Datetime: 08/25/2024 18:15 Contraction Comments: IV fluid bolus Datetime: 08/25/2024 18:13 I/O Interventions: Up to BR Datetime: 08/25/2024 18:02 Pain Coping: Breathing Through Contractions; Requesting Pain Medication or Epidural Anesthesia Comments: [employer], [employer] contacted for patient epidural request Datetime: 08/25/2024 17:30 Monitor Interventions for UA: [place] Adjusted Datetime: 08/25/2024 17:28 Monitor Interventions for FHR: Ultrasound Adjusted Datetime: 08/25/2024 15:45 Actions for Decelerations: Other Datetime: 08/25/2024 15:09 Provider Reviewed Strip: Yes Datetime: 08/25/2024 14:43 Stage of : Labor
== END 2024-08-27 12:20 | disposition home or self-care (01) | DRG 807 ==
LOC: WFO 14:32 → FBP 14:33
PROVIDERS: ADMIT Internal Medicine Gastroenterology; ATTEND Obstetrics & Gynecology
DX: R03.0 Elevated blood-pressure reading, without diagnosis of hypertension; O99.214 Obesity complicating childbirth; Z37.0 Single live birth; O99.893 Other specified diseases and conditions complicating puerperium; O70.1 Second degree perineal laceration during delivery; Z3A.39 39 weeks gestation of pregnancy